=== PATIENT | female | born 1965 | race Caucasian/White ===

== ENCOUNTER → 2018-01-24 07:04 | Outpatient (CLI) | payer OTHER, SELFPAY ==
[2018-01-24 09:07] LABS: ALB/GLOB Ratio 1.2 RATIO (0.9-2.4); AST(SGOT) 15 U/L (15-37); Alanine Aminotransfer ALT/SGPT 25 U/L (13-56); Alkaline Phosphatase 52 U/L (45-117); Anion Gap 8 (5-15); BUN 10 mg/dL (7-18); BUN/Creat Ratio 14.3 RATIO (10-20); Calcium,Total 9.1 mg/dL (8.5-10.1); Chloride 105 mmol/L (98-107); Cholesterol 190 mg/dL (200); EST Glomerular Filtration Rate 93 mL/min (>60); Est Glom Filt Rate - Afr Amer 112 mL/min (>60); Globulin 3.2 g/dL (2.2-4.2); Glucose 109 mg/dL (74-106); High Density Lipoprotein 37 mg/dL; Potassium 4.1 mmol/L (3.5-5.1); Protein, Total 7.2 g/dL (6.4-8.2); Sodium Level 141 mmol/L (136-145); Triglycerides 189 mg/dL; Very Low Density Lipoprotein 38 mg/dL (5-40)
== END ==
PROVIDERS: Family Provider Family Medicine; PCP Family Medicine; Visit Provider Family Medicine
DX: I10 Essential (primary) hypertension (principal); E78.2 Mixed hyperlipidemia
CPT/HCPCS: 36415; 80053; 80061

== ENCOUNTER → 2025-01-30 | Outpatient (CLI) | payer BC, SELFPAY ==
--- NOTE | 2025-01-30 08:54 | RAD_ITS ---
PROCEDURE: ABDOMEN SINGLE VIEW 01/30/2025 REASON FOR EXAM: LEFT URETERAL STONE TECHNIQUE: Procedure Code: RADABD Modality: DX Procedure: ABDOMEN SINGLE VIEW COMPARISON: None. FINDINGS: There is a nonobstructive bowel gas pattern. There are soft tissue calcifications projected over the left sacral ala and in the left hemipelvis, which could be ureteral stones. There is mild multilevel degenerative disc disease of the lumbar spine. RAD/Abdomen Single View IMPRESSION: Possible left ureteral stones as described. Reading Location: [id number]
[2025-01-30 10:47] LABS: Hematocrit 36.2 % (37-47); Hemoglobin 11.8 g/dL (12.0-15.0); Immature Granulocytes Count 0.010 X10^3/uL (0.0-0.0); Mean Corp Hgb Conc 32.6 g/dL (32-36); Mean Corpuscular Volume 92.1 fL (81-99); Mean Platelet Vol. 10.2 fl (6.2-12.0); NRBC Flagged by Analyzer 0 % (0-5); Platelet Count 327 K/mm3 (150-450); RBC Distribution Width CV 15.2 % (11.6-14.6); RBC Distribution Width SD 51.2 fl (35.1-43.9); Red Blood Count 3.93 M/mm3 (4.2-5.4); White Blood Count 6.0 K/mm3 (4.4-11.0)
[2025-01-30 11:11] LABS: Anion Gap 11 (5-15); BUN 8 mg/dL (4-19); BUN/Creat Ratio 9.4 RATIO (10-20); Calcium,Total 9.5 mg/dL (7.6-11.0); Carbon Dioxide 23.9 mmol/L (21.0-32.0); Chloride 107 mmol/L (98-108); Glucose 88 mg/dL (70-99); Potassium 3.9 mmol/L (3.3-5.1)
== END | disposition home or self-care (01) ==
LOC: MTLAB 08:54
PROVIDERS: PCP Family Medicine; Referring Provider Urology; Visit Provider Urology
DX: N20.1 Calculus of ureter (principal); N20.0 Calculus of kidney
CPT/HCPCS: 36415; 74018; 80048; 85025

== ENCOUNTER → 2025-02-01 | Outpatient (CLI) | payer BC, SELFPAY ==
--- NOTE | 2025-02-01 18:44 | CT_ITS ---
PROCEDURE: ABDOMEN/PELVIS WITHOUT CONT 02/01/2025 REASON FOR EXAM: 1CM URETERAL STONE ON CT IN DECEMBER NOT SEEN ON [facility] TECHNIQUE: Procedure Code: CTABDPEL Modality: CT Procedure: ABDOMEN/PELVIS WITHOUT CONT Noncontrast technique limits evaluation of the abdominal and pelvic viscera. Coronal and Sagittal reconstruction series were provided. One or more dose reduction techniques were used (e.g., Automated exposure control, adjustment of the mA and/or kV according to patient size, use of iterative reconstruction technique). RADIATION DOSE SUMMARY: DLP: 308.66 mGycm COMPARISON: None available. FINDINGS: Lung bases: The lung bases are clear. No pleural effusions. Liver: Hepatomegaly measuring up to 19 cm. Normal morphology. Gallbladder: Contracted gallbladder. Punctate cholelithiasis at the fundus. No biliary ductal dilatation. Spleen: Unremarkable. Pancreas: Unremarkable. Adrenals: 1.2 x 1.4 cm right adrenal nodule. The left adrenal gland is unremarkable. Kidneys: Normal in size. Ill-defined focal cortical hypodensity in the upper right renal pole (series 2, image 49). Punctate nonobstructive right renal calculus. No ureterolithiasis. No hydronephrosis bilaterally. There is no perinephric edema. Bladder: Unremarkable. Bowel: The small and large bowel are normal in caliber. No evidence of small bowel obstruction. Appendix: Unremarkable. Lymph nodes: No lymphadenopathy. Vasculature: No abdominal aortic aneurysm. Atherosclerotic calcification of the abdominal aorta and common iliac arteries. Peritoneum / Retroperitoneum: No ascites. Small fat containing umbilical hernia. Reproductive Organs: Hysterectomy. Bones: No aggressive osseous lesions. CT/Abdomen/Pelvis without Cont IMPRESSION: 1. Ill-defined focal right renal cortical hypodensity is nonspecific but may re flect underlying infection in the appropriate clinical setting. Lack of contrast limits evaluation. 2. Punctate nonobstructive right renal calculus. No hydronephrosis bilaterally . 3. Punctate cholelithiasis. 4. Additional findings as discussed above. Reading Location: [id number]
--- OUTSIDE RECORDS SUMMARY | 2025-02-01 18:44 | XMS RPT_ITS | CCD ---
Author Organization [facility] Care Team Providers Care Blue Print Control Clerk Name Role Phone NINI ROJAS DO Primary Care Physician [phone] CRYSTAL DO, NINI Attending Unavailable CRYSTAL DO, NINI Primary Care Unavailable CRYSTAL DO, NINI Attending Unavailable CRYSTAL DO, NINI Primary Care Unavailable CRYSTAL DO, NINI Attending Unavailable CRYSTAL DO, NINI Primary Care Unavailable CRYSTAL DO, NINI Attending Unavailable CRYSTAL DO, NINI Primary Care Unavailable CRYSTAL DO, NINI Attending Unavailable CRYSTAL DO, NINI Primary Care Unavailable CRYSTAL DO, NINI Primary Care Physician [phone] CRYSTAL DO, NINI Primary Care Unavailable SHAYE DO, DR MENDEZ Attending Unavailable CRYSTAL DO, NINI Attending Unavailable CRYSTAL DO, NINI Primary Care Unavailable CRYSTAL DO, NINI Primary Care Unavailable RIDER DO, DR MALA Rodarte Attending Unavailable CRYSTAL DO, NINI Attending Unavailable CRYSTAL DO, NINI Primary Care Unavailable CRYSTAL DO, NINI Attending Unavailable CRYSTAL DO, NINI Primary Care Unavailable CRYSTAL DO, NINI Primary Care Unavailable CRYSTAL DO, NINI Attending Unavailable Zuri Noel Referring Unavailable Crystal, Nini Primary Care Unavailable Zuri Noel Attending Unavailable Zuri Noel Attending Unavailable Crystal, Nini Primary Care Unavailable Crystal, Nini Referring Unavailable Allergies Allergy Classification Reported Allergen(s) Allergy Type Date of Onset Reaction(s) Facility (20 sources) Acetaminophen / HYDROcodone; Translations: [acetaminophen-hy drocodone] Drug Allergy Vomiting [facility] (20 sources) Antihistamines; Translations: [antihistamines] Drug allergy Irregular heart beat [facility] (20 sources) Codeine; Translations: [codeine] Drug Allergy Eruption of skin (disorder), Abnormal breathing (finding) [facility] (20 sources) Penicillins; Translations: [penicillins] Drug allergy 5 Eruption of skin (disorder) [facility] (20 sources) Promethazine; Translations: [promethazine] Drug Allergy Vomiting (disorder) [facility] (2 sources) Acetaminophen / oxyCODONE; Translations: [acetaminophen-ox ycodone] Drug Allergy [facility] (1 source) Codeine Drug Allergy 5 [facility] (1 source) Promethazine Drug Allergy 5 [facility] (1 source) venom-honey bee Drug allergy (disorder) 5 [facility] Medications Current Medications Medication Drug Class(es) Dates Sig (Normalized) Sig (Original) acetaminophen 325 mg / HYDROcodone bitartrate 5 mg oral tablet (2 sources) Opioid Agonist Start: 01-08-2025 End: 01-13-2025 take 1 tablet by mouth every six hours as needed for pain acetaminophen-hyd rocodone 325 mg-5 mg oral tablet Dose = 1 tab(s), Oral, q6h, PRN for pain, X 5 day(s), # 20 tab(s), 0 Refill(s), Pharmacy: [facility]/pharmacy #[id number], Nephrolithiasis, 165.8, cm, 01/08/25 9:21:00 EDT, Height, 64.8, kg, 01/08/25 9:21:00 EDT, Dosing Weight Start Date: 01/08/25 Stop Date: 01/13/25 Status: Ordered Medication Dispense Status: Completed Quantity: 20.0 Unit: tab(s) Total Allowed Fills: 1 Fills Dispensed: 0 Indications: Calculus of kidney; Start: 12-27-2024 End: 12-30-2024 take 1 tablet by mouth three times daily Tyler 325- 5 mg oral tablet Dose = 1 tab(s), Oral, TID, X 3 day(s), # 9 tab(s), 0 Refill(s), Kidney stone, 61.4 Start Date: 12/27/24 Stop Date: 12/30/24 Status: Ordered Medication Dispense Status: Completed Quantity: 9.0 Unit: tab(s) Total Allowed Fills: 1 Fills Dispensed: 0 Indications: Calculus of kidney; [id number] 200 actuat albuterol 0.09 mg/actuat metered dose inhaler (1 source) beta2-Adrenergic Agonist Start: 02-17-2022 take 2 puff(s) by inhalation every six hours as needed for wheezing ProAir HFA MDI (90 mcg/inh) inhalation aerosol 2 puff(s), Inhalation, q6h, PRN as needed for wheezing, Okay to change to formulary preferred if needed, # 8.5 gram(s), 1 Refill(s), [id number], Upper respiratory infection, 165.5, cm, 02/17/22 11:31:00 EDT, Height Start Date: 02/17/22 Status: Ordered amLODIPine 10 mg oral tablet (20 sources) Dihydropyridine Calcium Channel Beto Start: 09-06-2024 amLODIPine 10 mg oral tablet Dose : 10 mg = 1 tab(s), Oral, qDay, # 90 tab(s), 3 Refill(s), Pharmacy: [facility]/pharmacy #[id number], Hypertension, 166, cm, 09/06/24 13:01:00 EDT, Height, kg, 09/06/24 13:01:00 EDT, Dosing Weight Start Date: 09/06/24 Status: Ordered Medication Dispense Status: Completed Quantity: 90.0 Unit: tab(s) Total Allowed Fills: 4 Fills Dispensed: 0 Indications: Essential (primary) hypertension; Start: 03-20-2024 amLODIPine 10 mg oral tablet Dose : 10 mg = 1 tab(s), Oral, qDay, # 90 tab(s), 1 Refill(s), Pharmacy: [facility]/pharmacy #[id number], Hypertension, 165, cm, 03/20/24 12:53:00 EST, Height, kg, 03/20/24 12:53:00 EST, Dosing Weight Start Date: 03/20/24 Status: Ordered Start: 08-23-2023 amLODIPine 10 mg oral tablet Dose : 10 mg = 1 tab(s), Oral, qDay, Discontinue hydrochlorothiazide prescription please, # 90 tab(s), 1 Refill(s), [id number], Hypertension, 166.5, cm, 08/23/23 11:29:00 EDT, Height, kg, 08/23/23 11:29:00 EDT, Dosing Weight Start Date: 08/23/23 Status: Ordered Start: 03-24-2023 amLODIPine 10 mg oral tablet Dose : 10 mg = 1 tab(s), Oral, qDay, # 90 tab(s), 1 Refill(s), [id number], Hypertension, 166, cm, 03/24/23 14:46:00 EST, Height, kg, 03/24/23 14:46:00 EST, Dosing Weight Start Date: 03/24/23 Status: Ordered Start: 08-12-2022 amLODIPine 10 mg oral tablet Dose : 10 mg = 1 tab(s), Oral, qDay, # 90 tab(s), 1 Refill(s), [id number], Hypertension, 165, cm, 08/12/22 13:50:00 EDT, Height, kg, 08/12/22 13:50:00 EDT, Dosing Weight Start Date: 08/12/22 Status: Ordered Start: 02-17-2022 amLODIPine 10 mg oral tablet Dose : 10 mg = 1 tab(s), Oral, qDay, # 90 tab(s), 1 Refill(s), Pharmacy: [facility]/pharmacy #[id number], Hypertension, 165.5, cm, 02/17/22 11:31:00 EDT, Height, kg, 02/17/22 11:31:00 EDT, Dosing Weight Start Date: 02/17/22 Status: Ordered Start: 05-19-2021 amLODIPine 10 mg oral tablet Dose : 10 mg = 1 tab(s), Oral, qDay, # 90 tab(s), 1 Refill(s), Pharmacy: [facility]/pharmacy #[id number], Hypertension, 166.2, cm, 05/19/21 11:14:00 EST, Height, kg, 05/19/21 11:14:00 EST, Dosing Weight Start Date: 05/19/21 Status: Ordered Start: 11-19-2020 amLODIPine 10 mg oral tablet Dose : 10 mg = 1 tab(s), Oral, qDay, Increased dose, # 90 tab(s), 1 Refill(s), Pharmacy: [facility]/pharmacy #[id number], Hypertension, 169, cm, 11/19/20 13:11:00 EDT, Height, kg, 11/19/20 13:11:00 EDT, Dosing Weight Start Date: 11/19/20 Status: Ordered aspirin 81 mg delayed release oral tablet (20 sources) Platelet Aggregation Inhibitor, Nonsteroidal Anti-inflammatory Drug Start: 05-24-2019 aspirin 81 mg ora l delayed release tablet Dose : 81 mg = 1 tab(s), Oral, Daily, 0 Refill(s) Start Date: 05/24/19 Status: Ordered Medication Dispense Status: Completed Total Allowed Fills: 1 Fills Dispensed: 0 Start: 05-24-2019 aspirin 81 mg oral delayed release tablet Dose : 81 mg = 1 tab(s), Oral, Daily, 0 Refill(s) Start Date: 05/24/19 Status: Ordered azithromycin 250 mg oral tablet (1 source) Macrolide Antimicrobial Start: 07-08-2022 End: 07-13-2022 azithromycin 250 mg oral tablet Dose : 250 mg = 1 tab(s), Oral, Daily, Take with a probiotic, X 5 day(s), # 6 tab(s), 0 Refill(s), 07/13/22 5:32:00 EST, 63.6 Start Date: 07/08/22 Stop Date: 07/13/22 Status: Ordered benzonatate 100 mg oral capsule (1 source) Non-narcotic Antitussive Start: 07-08-2022 End: 07-15-2022 Tessalon Perles 100 mg oral capsule Dose : 100 mg = 1 cap(s), Oral, TID, X 7 day(s), # 21 cap(s), 0 Refill(s), 07/15/22 5:33:00 EST Start Date: 07/08/22 Stop Date: 07/15/22 Status: Ordered citalopram 40 mg oral tablet (18 sources) Serotonin Reuptake Inhibitor Start: 09-06-2024 citalopram 40 mg ora l tablet Dose : 40 mg = 1 tab(s), Oral, qDay, # 90 tab(s), 3 Refill(s), [id number], Recurrent major depression Situational anxiety, 166, cm, 09/06/24 13:01:00 EDT, Height, kg, 09/06/24 13:01:00 EDT, Dosing Weight Start Date: 09/06/24 Status: Ordered Medication Dispense Status: Completed Quantity: 90.0 Unit: tab(s) Total Allowed Fills: 4 Fills Dispensed: 0 Indications: Major depressive disorder, recurrent, unspecified; Other specified anxiety disorders; Start: 11-30-2023 citalopram 40 mg oral tablet Dose : 40 mg = 1 tab(s), Oral, qDay, # 90 tab(s), 3 Refill(s), [id number], Recurrent major depression Situational anxiety, 165, cm, 11/30/23 12:44:00 EDT, Height, kg, 11/30/23 12:44:00 EDT, Dosing Weight Start Date: 11/30/23 Status: Ordered Start: 05-24-2023 citalopram 40 mg oral tablet Dose : 40 mg = 1 tab(s), Oral, qDay, # 90 tab(s), 1 Refill(s), [id number], Recurrent major depression Situational anxiety, 166, cm, 05/24/23 11:42:00 EST, Height, kg, 05/24/23 11:42:00 EST, Dosing Weight Start Date: 05/24/23 Status: Ordered Start: 03-24-2023 citalopram 40 mg oral tablet Dose : 40 mg = 1 tab(s), Oral, qDay, Increased dose, # 90 tab(s), 0 Refill(s), Pharmacy: [facility]/pharmacy #[id number], Recurrent major depression Situational anxiety, 166, cm, 03/24/23 14:46:00 EST, Height, kg, 03/24/23 14:46:00 EST, Dosing Weight Start Date: 03/24/23 Status: Ordered Start: 10-28-2022 citalopram 20 mg oral tablet Dose : 20 mg = 1 tab(s), Oral, qDay, # 90 tab(s), 1 Refill(s), [id number], Situational anxiety, 167, cm, 10/28/22 8:56:00 EDT, Height, kg, 10/28/22 8:56:00 EDT, Dosing Weight Start Date: 10/28/22 Status: Ordered Start: 08-12-2022 citalopram 20 mg oral tablet Dose : 20 mg = 1 tab(s), Oral, qDay, # 90 tab(s), 0 Refill(s), [id number], Situational anxiety, 165, cm, 08/12/22 13:50:00 EDT, Height Start Date: 08/12/22 Status: Ordered Start: 05-07-2022 citalopram 20 mg oral tablet Dose : 20 mg = 1 tab(s), Oral, qDay, Increased dose, # 90 tab(s), 1 Refill(s), [id number], Situational anxiety, 165.5, cm, 05/07/22 8:48:00 EST, Height Start Date: 05/07/22 Status: Ordered Start: 08-21-2021 citalopram 20 mg oral tablet Dose : 20 mg = 1 tab(s), Oral, qDay, Increased dose, # 90 tab(s), 0 Refill(s), [id number], 165, cm, 08/21/21 10:46:00 EDT, Height Start Date: 08/21/21 Status: Ordered doxycycline hyclate 100 mg oral capsule (1 source) Tetracycline-class Drug Start: 07-29-2022 End: 08-08-2022 doxycycline hyclate 100 mg oral capsule Dose : 100 mg = 1 cap(s), Oral, BID, X 10 day(s), # 20 cap(s), 0 Refill(s), 08/08/22 14:55:00 EDT, [id number], Pneumonia, 166, cm, 07/13/22 8:24:00 EST, Height, 63.9 Start Date: 07/29/22 Stop Date: 08/08/22 Status: Ordered fenofibrate 160 mg oral tablet (14 sources) Peroxisome Proliferator Receptor alpha Agonist Start: 08-23-2023 fenofibrate 160 m g oral tablet Dose : 160 mg = 1 tab(s), Oral, qDay, # 90 tab(s), 1 Refill(s), [id number], Hyperlipidemia, 166.5, cm, 08/23/23 11:29:00 EDT, Height, kg, 08/23/23 11:29:00 EDT, Dosing Weight Start Date: 08/23/23 Status: Ordered Start: 03-24-2023 fenofibrate 16 0 mg oral tablet Dose : 160 mg = 1 tab(s), Oral, qDay, # 90 tab(s), 1 Refill(s), [id number], Hyperlipidemia, 166, cm, 03/24/23 14:46:00 EST, Height, kg, 03/24/23 14:46:00 EST, Dosing Weight Start Date: 03/24/23 Status: Ordered Start: 08-12-2022 fenofibrate 16 0 mg oral tablet Dose : 160 mg = 1 tab(s), Oral, qDay, # 90 tab(s), 1 Refill(s), [id number], Hyperlipidemia, 165, cm, 08/12/22 13:50:00 EDT, Height, kg, 08/12/22 13:50:00 EDT, Dosing Weight Start Date: 08/12/22 Status: Ordered Start: 02-17-2022 fenofibrate 16 0 mg oral tablet Dose : 160 mg = 1 tab(s), Oral, qDay, # 90 tab(s), 1 Refill(s), Pharmacy: [facility]/pharmacy #[id number], Hyperlipidemia, 165.5, cm, 02/17/22 11:31:00 EDT, Height, kg, 02/17/22 11:31:00 EDT, Dosing Weight Start Date: 02/17/22 Status: Ordered Start: 05-19-2021 fenofibrate 16 0 mg oral tablet Dose : 160 mg = 1 tab(s), Oral, qDay, # 90 tab(s), 1 Refill(s), Pharmacy: [facility]/pharmacy #[id number], Hyperlipidemia, 166.2, cm, 05/19/21 11:14:00 EST, Height, kg, 05/19/21 11:14:00 EST, Dosing Weight Start Date: 05/19/21 Status: Ordered Start: 11-19-2020 fenofibrate 16 0 mg oral tablet Dose : 160 mg = 1 tab(s), Oral, qDay, # 90 tab(s), 1 Refill(s), Pharmacy: [facility]/pharmacy #[id number], Hyperlipidemia, 169, cm, 11/19/20 13:11:00 EDT, Height, kg, 11/19/20 13:11:00 EDT, Dosing Weight Start Date: 11/19/20 Status: Ordered hydroCHLOROthiazide 25 mg oral tablet (12 sources) Thiazide Diuretic Start: 03-24-2023 hydroCHLOROthiazide 25 mg oral tablet Dose : 25 mg = 1 tab(s), Oral, qDay, # 90 tab(s), 1 Refill(s), [id number], Hypertension, 166, cm, 03/24/23 14:46:00 EST, Height, kg, 03/24/23 14:46:00 EST, Dosing Weight Start Date: 03/24/23 Status: Ordered Start: 08-12-2022 hydroCHLOROthi azide 25 mg oral tablet Dose : 25 mg = 1 tab(s), Oral, qDay, # 90 tab(s), 1 Refill(s), Pharmacy: [facility]/pharmacy #[id number], Hypertension, 165, cm, 08/12/22 13:50:00 EDT, Height, kg, 08/12/22 13:50:00 EDT, Dosing Weight Start Date: 08/12/22 Status: Ordered Start: 02-17-2022 hydroCHLOROthi azide 25 mg oral tablet Dose : 25 mg = 1 tab(s), Oral, qDay, # 90 tab(s), 1 Refill(s), Pharmacy: [facility]/pharmacy #[id number], Hypertension, 165.5, cm, 02/17/22 11:31:00 EDT, Height, kg, 02/17/22 11:31:00 EDT, Dosing Weight Start Date: 02/17/22 Status: Ordered Start: 05-19-2021 hydroCHLOROthi azide 25 mg oral tablet Dose : 25 mg = 1 tab(s), Oral, qDay, # 90 tab(s), 1 Refill(s), [id number], Hypertension, 166.2, cm, 05/19/21 11:14:00 EST, Height, kg, 05/19/21 11:14:00 EST, Dosing Weight Start Date: 05/19/21 Status: Ordered Start: 11-19-2020 hydroCHLOROthi azide 25 mg oral tablet Dose : 25 mg = 1 tab(s), Oral, qDay, # 90 tab(s), 1 Refill(s), [id number], Hypertension, 169, cm, 11/19/20 13:11:00 EDT, Height, kg, 11/19/20 13:11:00 EDT, Dosing Weight Start Date: 11/19/20 Status: Ordered ondansetron 4 mg oral tablet (4 sources) Serotonin-3 Receptor Antagonist Start: 01-08-2025 Zofran 4 mg oral tab let Dose : 4 mg = 1 tab(s), Oral, q6h, PRN Nausea/Vomiting, # 20 tab(s), 0 Refill(s), [id number], 165.8, cm, 01/08/25 9:21:00 EDT, Height, kg, 01/08/25 9:21:00 EDT, Dosing Weight Start Date: 01/08/25 Status: Ordered Medication Dispense Status: Completed Quantity: 20.0 Unit: tab(s) Total Allowed Fills: 1 Fills Dispensed: 0 Start: 01-08-2025 ondansetron 4 mg oral tablet, disintegrating Dose : 4 mg = 1 tab(s), Oral, q8h, PRN as needed for nausea/vomiting, 0 Refill(s) Start Date: 01/08/25 Status: Ordered Medication Dispense Status: Completed Total Allowed Fills: 1 Fills Dispensed: 0 Start: 12-27-2024 End: 12-30-2024 ondansetron 4 mg oral tablet , disintegrating Dose : 4 mg = 1 tab(s), Oral, q8h, X 3 day(s), # 9 tab(s), 0 Refill(s), 12/30/24 12:37:00 AM EDT Start Date: 12/27/24 Stop Date: 12/30/24 Status: Ordered Medication Dispense Status: Completed Quantity: 9.0 Unit: tab(s) Total Allowed Fills: 1 Fills Dispensed: 0 Start: 07-08-2022 End: 07-11-2022 ondansetron 4 mg oral tablet , disintegrating Dose : 4 mg = 1 tab(s), Oral, q8h, X 3 day(s), # 9 tab(s), 0 Refill(s), 07/11/22 5:33:00 EST Start Date: 07/08/22 Stop Date: 07/11/22 Status: Ordered rosuvastatin calcium 5 mg oral tablet (7 sources) HMG-CoA Reductase Inhibitor Start: 09-06-2024 rosuvastatin 5 mg or al tablet Dose : 5 mg = 1 tab(s), Oral, qDay, decreased dose, # 90 tab(s), 3 Refill(s), Pharmacy: [facility]/pharmacy #[id number], Hyperlipidemia, 166, cm, 09/06/24 13:01:00 EDT, Height, kg, 09/06/24 13:01:00 EDT, Dosing Weight Start Date: 09/06/24 Status: Ordered Medication Dispense Status: Completed Quantity: 90.0 Unit: tab(s) Total Allowed Fills: 4 Fills Dispensed: 0 Indications: Hyperlipidemia, unspecified; Start: 03-20-2024 rosuvastatin 1 0 mg oral tablet Dose : 10 mg = 1 tab(s), Oral, qDay, # 90 tab(s), 1 Refill(s), Pharmacy: [facility]/pharmacy #[id number], Hyperlipidemia, 165, cm, 03/20/24 12:53:00 EST, Height, kg, 03/20/24 12:53:00 EST, Dosing Weight Start Date: 03/20/24 Status: Ordered Start: 11-30-2023 rosuvastatin 1 0 mg oral tablet Dose : 10 mg = 1 tab(s), Oral, qDay, Discontinue fenofibrate prescription please, # 90 tab(s), 1 Refill(s), Pharmacy: [facility]/pharmacy #[id number], Hyperlipidemia, 165, cm, 11/30/23 12:44:00 EDT, Height, kg, 11/30/23 12:44:00 EDT, Dosing Weight Start Date: 11/30/23 Status: Ordered sulfamethoxazole 800 mg / trimethoprim 160 mg oral tablet (1 source) Dihydrofolate Reductase Inhibitor Antibacterial, Sulfonamide Antimicrobial Start: 01-08-2025 End: 01-18-2025 take 1 tablet by mouth twice daily Bactrim DS 800 mg-160 mg oral tablet Dose = 1 tab(s), Oral, BID, X 10 day(s), # 20 tab(s), 0 Refill(s), [id number], 165.8, cm, 01/08/25 9:21:00 EDT, Height, 64.8, kg, 01/08/25 9:21:00 EDT, Dosing Weight Start Date: 01/08/25 Stop Date: 01/18/25 Status: Ordered Medication Dispense Status: Completed Quantity: 20.0 Unit: tab(s) Total Allowed Fills: 1 Fills Dispensed: 0 tamsulosin hydrochloride 0.4 mg oral capsule (2 sources) alpha-Adrenergic Beto Start: 01-08-2025 End: 01-18-2025 Flomax 0.4 mg oral capsule Dose : 0.4 mg = 1 cap(s), Oral, qDayPC, # 10 cap(s), 0 Refill(s), [id number], 165.8, cm, 01/08/25 9:21:00 EDT, Height, kg, 01/08/25 9:21:00 EDT, Dosing Weight Start Date: 01/08/25 Stop Date: 01/18/25 Status: Ordered Medication Dispense Status: Completed Quantity: 10.0 Unit: cap(s) Total Allowed Fills: 1 Fills Dispensed: 0 Start: 12-27-2024 End: 12-30-2024 Flomax 0.4 mg oral capsule D ose : 0.4 mg = 1 cap(s), Oral, qDayPC, # 3 cap(s), 0 Refill(s) Start Date: 12/27/24 Stop Date: 12/30/24 Status: Ordered Medication Dispense Status: Completed Quantity: 3.0 Unit: cap(s) Total Allowed Fills: 1 Fills Dispensed: 0 Vitamin D3 1250 mcg (50,000 intl units) oral capsule (4 sources) Start: 06-22-2023 Vitamin D3 125 0 mcg (50,000 intl units) oral capsule Dose : 1,250 mcg = 1 cap(s), Oral, qWeek, # 13 cap(s), 3 Refill(s), [id number], Vitamin D deficiency, 167, cm, 10/28/22 8:56:00 EDT, Height Start Date: 10/28/22 Status: Ordered Start: 08-22-2021 Vitamin D3 125 0 mcg (50,000 intl units) oral capsule Dose : 1,250 mcg = 1 cap(s), Oral, qWeek, # 13 cap(s), 3 Refill(s), [id number], Vitamin D deficiency, 165, cm, 08/21/21 10:46:00 EDT, Height Start Date: 08/22/21 Status: Ordered Completed/Discontinued Medications Medication Drug Class(es) Dates Sig (Normalized) Sig (Original) prochlorperazine 25 mg rectal suppository (1 source) Phenothiazine Start: 07-08-2022 End: 07-11-2022 prochlorperazine 25 mg rectal suppository Dose : 25 mg = 1 supp, Rectal, BID, PRN as needed for nausea/vomiting, # 9 supp, 0 Refill(s) Start Date: 07/08/22 Stop Date: 07/11/22 Status: Ordered Problems Active Problems Problem Classification Problem Date Documented Da te Episodic/Chronic Anxiety disorders (20 sources) Anxiety 05-19-2021 Chronic Calculus of urinary tract (6 sources) Kidney stone; Translations: [Calculus of kidney] Onset: 12-26-2024 Episodic Cardiac dysrhythmias (7 sources) Palpitations 11-30-2023 Episodic Disorders of lipid metabolism (20 sources) Hyperlipidemia; Translations: [Hyperlipidemia, unspecified] 11-17-2018 Chronic Essential hypertension (20 sources) Hypertensive disorder; Translations: [Essential hypertension] Onset: 08-23-2023 11-21-2019 Chronic Genitourinary symptoms and ill-defined conditions (2 sources) Dysuria; Translations: [Dysuria] Onset: 01-08-2025 Episodic Malaise and fatigue (20 sources) Fatigue 08-21-2021 Episodic Mood disorders (10 sources) Recurrent major depression 03-24-2023 Chronic Nutritional deficiencies (19 sources) Vitamin D deficiency; Translations: [Vitamin D deficiency, unspecified] 10-02-2021 Chronic Nutritional deficiencies (10 sources) Cobalamin deficiency 03-24-2023 Episodic Other lower respiratory disease (17 sources) Wheezing 07-13-2022 Episodic Other non-traumatic joint disorders (1 source) Joint pain in right hand; Translations: [Pain in joints of right hand] Episodic Other non-traumatic joint disorders (9 sources) Bilateral pain of joint of hands 08-23-2023 Episodic Other nutritional; endocrine; and metabolic disorders (13 sources) Overweight in adulthood with body mass index of 25 or more but less than 30 10-28-2022 Episodic Other screening for suspected conditions (not mental disorders or infectious disease) (20 sources) Viral screening status; Translations: [Thyroid function tests abnormal] 08-21-2021 Episodic Other skin disorders (13 sources) Lesion of skin of face 10-28-2022 Episodic Other skin disorders (13 sources) Loss of hair 10-28-2022 Episodic Other skin disorders (1 source) Non-scarring alopecia; Translations: [Nonscarring hair loss, unspecified] Episodic Other skin disorders (7 sources) Bilateral ingrowing nail of toe of feet 11-30-2023 Episodic Other upper respiratory infections (20 sources) Acute sinusitis; Translations: [Upper respiratory infection] 10-02-2021 Episodic Residual codes; unclassified (20 sources) Requires vaccination 05-24-2019 Episodic Residual codes; unclassified (20 sources) Requires varicella vaccination 08-21-2021 Episodic Residual codes; unclassified (18 sources) Needs influenza immunization 02-17-2022 Episodic Residual codes; unclassified (18 sources) Requires diphtheria, tetanus and pertussis vaccination 11-25-2021 Episodic Residual codes; unclassified (9 sources) Screening due 05-24-2023 Episodic Screening and history of mental health and substance abuse codes (15 sources) Ex-tobacco user 08-12-2022 Episodic Spondylosis; intervertebral disc disorders; other back problems (10 sources) Sciatica 03-24-2023 Episodic Unclassified (20 sources) Patient encounter status 08-21-2021 Unclassified (18 sources) Body mass index 20-24 - normal 02-17-2022 Unclassified (18 sources) Cancer cervix screening status 11-25-2021 Unclassified (9 sources) Influenza vaccination status 05-24-2023 Viral infection (17 sources) 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 Nini Rojas DO Status: REG CLI Study: Abdomen Single View Date of Exam: 01/30/25 Exam# [id number] Ordering Dr: Zuri Noel MD PROCEDURE: ABDOMEN SINGLE VIEW 01/30/2025 REASON FOR EXAM: LEFT URETERAL STONE TECHNIQUE: Procedure Code: RADABD Modality: DX Procedure: ABDOMEN SINGLE VIEW COMPARISON: None. FINDINGS: There is a nonobstructive bowel gas pattern. There are soft tissue calcifications projected over the left sacral ala and in the left hemipelvis, which could be ureteral stones. There is mild multilevel degenerative disc disease of the lumbar spine. RAD/Abdomen Single View IMPRESSION: Possible left ureteral stones as described. Reading Location: [id number] CC: Dr. Zuri Noel MD; Dr. Nini Rojas DO Data Sme: Signed Normal [facility] Basic Metabolic Profile (BMP )on 01-30-2025 BUN/CRE 9.4 RATIO Low 10-20 [facility] Comment on above: Performed By: #### L 500.2500, L100.0100 #### [facility] Laboratory [address] [place], [address] Calcium [Mass/Vol] 9.5 mg/dL Normal 7.6-11.0 [facility] Comment on above: Performed By: #### L 500.2500, L100.0100 #### [facility] [address] [place], [address] Chloride [Moles/Vol] 107 mmol/L Normal 98-108 [facility] Comment on above: Performed By: #### L 500.2500, L100.0100 #### [facility] [address] [place], [address] CO2 [Moles/Vol] 23.9 mmol/L Normal 21.0-32.0 [facility] Comment on above: Performed By: #### L 500.2500, L100.0100 #### [facility] [address] [place], [address] Creatinine [Mass/Vol] 0.82 mg/dL Normal 0.70-1.20 [facility] Comment on above: Performed By: #### L 500.2500, L100.0100 #### [facility] [address] [place], [address] GAP 11 Normal 5-15 [facility] Comment on above: Performed By: #### L 500.2500, L100.0100 #### [facility] [address] [place], [address] GFR/1.73 sq M.predicted among non-blacks MDRD (S/P/Bld) [Vol rate/Area] 81 mL/min/{1.73_m2} Normal >60 [facility] Comment on above: Result Comment: mL/m in/1.73m2 CKD-EPI Creatinine Equation (2020) Performed By: #### L 500.2500, L100.0100 #### [facility] [address] [place], [address] Glucose [Mass/Vol] 88 mg/dL Normal 70-99 [facility] Comment on above: Performed By: #### L 500.2500, L100.0100 #### [facility] [address] [place], [address] Potassium [Moles/Vol] 3.9 mmol/L Normal 3.3-5.1 [facility] Comment on above: Performed By: #### L 500.2500, L100.0100 #### [facility] [address] [place], [address] Sodium [Moles/Vol] 142 mmol/L Normal 133-145 [facility] Comment on above: Performed By: #### L 500.2500, L100.0100 #### [facility] [address] [place], [address] Urea nitrogen [Mass/Vol] 8 mg/dL Normal 4-19 [facility] Comment on above: Performed By: #### L 500.2500, L100.0100 #### [facility] [address] [place], [address] CBC W/Diff, Automatedon 09-2 -2024 Absolute Lymph 1.37 X10 3/uL Normal 0.83-4.51 [facility] Comment on above: Performed By: #### L 500.2500, L100.0100 #### [facility] [address] [place], [address] Absolute Neut 3.9 X10 3/uL Normal 2.0-7.7 [facility] Comment on above: Performed By: #### L 500.2500, L100.0100 #### [facility] [address] [place], [address] Basophils/100 WBC (Bld) 1.5 % High 0-1 [facility] Comment on above: Performed By: #### L 500.2500, L100.0100 #### [facility] [address] [place], [address] Eosinophils/100 WBC (Bld) 2.0 % Normal 0-5 [facility] Comment on above: Performed By: #### L 500.2500, L100.0100 #### [facility] [address] [place], [address] Erythrocyte distribution width (RBC) [Ratio] 15.2 % High 11.6-14.6 [facility] Comment on above: Performed By: #### L 500.2500, L100.0100 #### [facility] [address] [place], [address] Hematocrit (Bld) [Volume fraction] 36.2 % Low 37-47 [facility] Comment on above: Performed By: #### L 500.2500, L100.0100 #### [facility] [address] [place], [address] Hemoglobin (Bld) [Mass/Vol] 11.8 g/dL Low 12.0-15.0 [facility] Comment on above: Performed By: #### L 500.2500, L100.0100 #### [facility] [address] [place], [address] IG% 0.200 Normal 0.0-0.9 [facility] Comment on above: Result Comment: IG% - Immature Granulocytes (promyelocytes, myelocytes and metamyelocytes) > 1% indicates that a LEFT SHIFT is Present. Performed By: #### L 500.2500, L100.0100 #### [facility] [address] [place], [address] Lymphocytes/100 WBC (Bld) 22.8 % Normal 19-41 [facility] Comment on above: Performed By: #### L 500.2500, L100.0100 #### [facility] [address] [place], [address] MCH (RBC) [Entitic mass] 30.0 pg Normal 27.0-32.0 [facility] Comment on above: Performed By: #### L 500.2500, L100.0100 #### [facility] [address] [place], [address] MCHC (RBC) [Mass/Vol] 32.6 g/dL Normal 32-36 [facility] Comment on above: Performed By: #### L 500.2500, L100.0100 #### [facility] [address] [place], [address] MCV (RBC) [Entitic vol] 92.1 fL Normal 81-99 [facility] Comment on above: Performed By: #### L 500.2500, L100.0100 #### [facility] [address] [place], [address] Monocytes/100 WBC (Bld) 8.2 % Normal 0-10 [facility] Comment on above: Performed By: #### L 500.2500, L100.0100 #### [facility] [address] [place], [address] Neutrophils/100 WBC (Bld) 65.3 % Normal 47-70 [facility] Comment on above: Performed By: #### L 500.2500, L100.0100 #### [facility] [address] [place], [address] Nucleated RBC (Bld) [#/Vol] 0 10*3/uL Normal 0-5 [facility] Comment on above: Performed By: #### L 500.2500, L100.0100 #### [facility] [address] [place], [address] Platelet mean volume (Bld) [Entitic vol] 10.2 fL Normal 6.2-12.0 [facility] Comment on above: Performed By: #### L 500.2500, L100.0100 #### [facility] [address] [place], [address] Platelets (Bld) [#/Vol] 327 10*3/uL Normal 150-450 [facility] Comment on above: Performed By: #### L 500.2500, L100.0100 #### [facility] [address] [place], [address] RBC (Bld) [#/Vol] 3.93 10*6/uL Low 4.2-5.4 [facility] Comment on above: Performed By: #### L 500.2500, L100.0100 #### [facility] [address] [place], [address] RDW SD 51.2 fl High 35.1-43.9 [facility] Comment on above: Performed By: #### L 500.2500, L100.0100 #### [facility] [address] [place], [address] WBC (Bld) [#/Vol] 6.0 10*3/uL Normal 4.4-11.0 [facility] Comment on above: Performed By: #### L 500.2500, L100.0100 #### [facility] [address] [place], [address] MR/[place] 01-30-2025 MR/JEET [facility] [address], [address] [place] [address] OFFICE VISIT Date of Service: 01/30/25 MR#: [id number] Acct: [id number] Name: SHANAE ORTIZ Monet Rep #: [id number] : 1965 Provider: Dr. Zuri De La Cruz i, MD Age/Sex: 59/F [place] [facility] [place]: Signed Intake Vital Signs 01/30/25 07:58 Height 5 ft 6.5 in Weight: 153 lb 9 oz BMI 24.4 BP 127/75 H Pulse 69 Intake Visit Reasons: Kidney stones Chief Complaint: left sided kidney stone Photo Retoucher Required: No Accompanied by: self Is patient in pain?: Yes (stones ) Pain scale (1-10): 5 Allergies codeine Allergy (Verified 01/30/25 07:56) Rash Penicillins Allergy (Verified 01/30/25 07:56) Rash venom-honey bee (bee venom (honey bee)) Allergy (Verified 01/30/25 07:56) Shortness of breath promethazine HCl (From Phenergan) Adverse Reaction (Verified 01/30/25 07:56) Vomiting Medications ???Medication ???Instructions ???Recorded ???Confirmed ???Type amlodipine 10 mg tablet 10 mg PO DAILY 04/16/15 01/30/25 H istory aspirin 81 mg tablet 81 mg PO QDAY 01/30/25 01/30/25 Hi story ondansetron 4 mg disintegrating 4 mg PO Q8H PRN nausea and 5 01/30/25 Rx tablet vomiting #20 tabs oxycodone-acetamino phen 5 mg-325 1 tab PO TID PRN pain 7 days #20 0 01/30/25 01/30/25 Rx mg tablet (Percocet) tabs rosuvastatin 5 mg tablet 5 mg PO QDAY 01/30/25 01/30/25 His tory Have you fallen in the past year?: Yes (just bruised some ) Nurse's Note: [facility] bladder scan PVR 0cc. PFSH Medical History (Updated 01/30/25 @ 08:[address] Zuri Noel MD) Flank pain Hydronephrosis Ureteral calculus delivery delivered H/O: pneumonia Kidney stones High cholesterol Hypertension Chronic headaches Carpal tunnel syndrome Cataracts, bilateral Breast lump H/O transfusion of whole blood UTI (urinary tract infection) Arthritis Anemia Surgical History S/P carpal tunnel release H/O lumpectomy H/O: hysterectomy S/P tonsillectomy Family History Other Anemia Breast cancer CVA (cerebral vascular accident) Cancer Diabetes High cholesterol Hypertension Parkinsons disease Social History Smoking Status: Current every day smoker alcohol intake: never substance use type: does not use what type of physical activity do you participate in: walking frequency: other duration: other do you feel safe at home: Yes HPI HPI Urology Chief Complaint: left sided kidney stone Details: SHANAE ORTIZ, is a 59 F. She is here for evaluation and management of left ureteral and right kidney stones. It was found on 12/26 and she is having significant pain and nausea on the left side. No fever or chills. There is some burning with urination and urgency. No gross hematuria. She has had surgery for stones about 20 years ago with a stent. She has nausea and vomiting with anesthesia. No heart conditions, lung disease. She does take an ASA daily. She is voiding less than 10 times during the day, 3-4 times at night. There is urge incontinence where she cannot make it to the bathroom. There is stress incontinence with cough, laugh, sneeze, lifting, etc. She is using 1 pad in 24 hours. She has had one urinary tract infection in the last year. She is not sexually active. There is no sensation of vaginal bulging. She has had one child. She has the following issues with chronic bowel function: none. There is no pelvic pain. She has a long history of smoking. She smokes 3-5 cigarettes a day. 45yrs history of smoking. There is no history of blood clots or easy bleeding. There is a family history of father with breast cancer. Mom with bladder cancer, she was a smoker and had cancer at 79yo. ROS Const Constitutional: No chills, fatigue, fever(s), headache(s), night sweats, weakness, weight change, abnormal sleep pattern or change in appetite Eyes Eyes: No change in vision ENT ENT: No headache(s) or dry mouth Resp Respiratory: No cough, chest congestion, shortness of breath or wheezing Cardio Cardiology: Positive for other (No chest pain.); No shortness of breath, irregular heart rhythm or lightheadedness Gastro GI: Positive for abdominal pain, nausea/dyspepsia and other (No GERD.); No change in bowel habits, constipation, diarrhea or vomiting Musc Musculoskeletal: No abnormal gait Skin Skin: No yellowing of the eye, lesions, itchy eyes, rash or skin ulcer Neuro Neurology: No abnormal gait, confusion, dizziness, weakness, headache(s) or memory loss Psych Psychiatric: No abnormal sleep pattern, No change in appetite, No confusion and No m (more content not included)... Normal [facility] MEROPENEM:SUSC:PT:ISOLATE:OR DQN:MICon 01-08-2025 Meropenem TATYANA [Susc] 10,000 - 50,000 cfu/ml Escherichia coli [facility] Meropenem TATYANA [Susc]on 01-08 Escherichia coli Escherichia coli [facility] UAon 12-27-2024 Color (U) Yellow Normal [facility] Comment on above: Performed By: #### U AMIC, UA #### [place] [address] Glucose (U) [Mass/Vol] Negative Normal Negative [facility] Comment on above: Performed By: #### U AMIC, UA #### [place] [address] Ketones Ql (U) Negative Normal Negative [facility] Comment on above: Performed By: #### U AMIC, UA #### [place] [address] UA Appear Clear Normal Clear [facility] Comment on above: Performed By: #### U AMIC, UA #### [place] [address] UA Blood Moderate Abnormal Negative [facility] Comment on above: Performed By: #### U AMIC, UA #### [place] [address] UA Leuk Est Small Abnormal Negative [facility] Comment on above: Performed By: #### U AMIC, UA #### [place] [address] UA Nitrite Negative Normal Negative [facility] Comment on above: Performed By: #### U AMIC, UA #### [place] [address] UA pH 6.0 Normal 5.0 - 8.0 [facility] Comment on above: Performed By: #### U AMIC, UA #### [address] [address] UA Protein Negative Normal Negative [facility] Comment on above: Performed By: #### U AMIC, UA #### [address] [address] UA Spec Grav 1.015 Normal 1.015-1.025 [facility] Comment on above: Performed By: #### U AMIC, UA #### [address] [address] UA Specimen Type Void Normal [facility] Comment on above: Performed By: #### U AMIC, UA #### [place] [address] UA Urobilinogen 0.2 E.U./dL Normal 0.2-1.0 [facility] Comment on above: Performed By: #### U AMIC, UA #### [place] [address] Urobilinogen (U) [Mass/Vol] Negative Normal Negative [facility] Comment on above: Performed By: #### U AMIC, UA #### [address] [address] UAMICon 12-27-2024 UA RBC 3-5 Abnormal 0-2 [facility] Comment on above: Performed By: #### U AMIC, UA #### [place] [address] UA Squam Epithelial 0-2 Normal 0-20 [facility] Comment on above: Performed By: #### U AMIC, UA #### [place] [address] UA WBC 3-5 Normal 0-5 [facility] Comment on above: Performed By: #### U AMIC, UA #### [address] [address] .Auto Diffon 12-26-2024 Basophil, Absolute 0.1 10 3/mcL Normal 0.0-0.3 [facility] Comment on above: Performed By: #### C BC, BMP, GFR, MDW, ANEU, ADIFF ####[address] [place], [place] [address] Basophils/100 WBC (Bld) 0.9 % Normal 0.0-2.5 [facility] Comment on above: Performed By: #### C BC, BMP, GFR, MDW, ANEU, ADIFF ####[address] [place], [place] [address] Eosinophil, Absolute 0.1 10 3/mcL Normal 0.0-0.7 [facility] Comment on above: Performed By: #### C BC, BMP, GFR, MDW, ANEU, ADIFF ####[address] [place], [place] [address] Eosinophils/100 WBC (Bld) 1.0 % Normal 0.0-6.0 [facility] Comment on above: Performed By: #### C BC, BMP, GFR, MDW, ANEU, ADIFF ####[address] [place], [place] [address] Lymphocyte, Absolute 1.4 10 3/mcL Normal 0.9-4.3 [facility] Comment on above: Performed By: #### C BC, BMP, GFR, MDW, ANEU, ADIFF ####[address] [place], [place] [address] Lymphocytes/100 WBC (Bld) 10.2 % Low 20.0-40.0 [facility] Comment on above: Performed By: #### C BC, BMP, GFR, MDW, ANEU, ADIFF ####[address] [place], [place] [address] Monocyte, Absolute 0.6 10 3/mcL Normal 0.1-1.4 [facility] Comment on above: Performed By: #### C BC, BMP, GFR, MDW, ANEU, ADIFF ####[address] [place], [place] [address] Monocytes/100 WBC (Bld) 4.1 % Normal 2.0-13.0 [facility] Comment on above: Performed By: #### C BC, BMP, GFR, MDW, ANEU, ADIFF ####[address] [place], [place] [address] Neutrophils/100 WBC (Bld) 83.8 % High 50.0-75.0 [facility] Comment on above: Performed By: #### C BC, BMP, GFR, MDW, ANEU, ADIFF ####[address] [place], [place] [address] .GFRon 12-26-2024 Estimated Glomerular Filtration Rate 74 ml/min/1.73sqm Normal [facility] Comment on above: Result Comment: Stages of Chronic Kidney Disease (CKD) Stage Description eGFR(ml/min/1.73 sq.m.) CKD 1 Normal kidney function or >=90 normal kindney function with possible kidney damage (ex. Proteinuria) CKD 2 Kidney damage with mild loss 60-89 of kidney function CKD 3a Mild to moderate loss of kidney 45-59 function CKD 3b Moderate to severe loss of 30-44 of kindey function CKD 4 Severe loss of kidney function 15-29 CKD 5 Kidney failure <15 Note: (go live 2024) the eGFR calculation was updated to the 2020 CKD-EPI creatinine equation without a race factor to calculate the eGFR results. Performed By: #### C BC, BMP, GFR, MDW, ANEU, ADIFF ####[address] [place], [place] [address] .MDWon 12-26-2024 Monocyte Distribution Width 19.22 Normal 0.00-20.00 [facility] Comment on above: Result Comment: For ED adult patients suspected of sepsis, MDW<=20.0 does not rule out sepsis or risk of sepsis Performed By: #### C BC, BMP, GFR, MDW, ANEU, ADIFF ####[address] [place], [place] [address] .NEUABSon 12-26-2024 Neutrophil, Absolute 11.8 10 3/mcL High 2.3-8.1 [facility] Comment on above: Performed By: #### C BC, BMP, GFR, MDW, ANEU, ADIFF ####[address] [place], [place] [address] BMPon 12-26-2024 BUN/Creatinine Ratio 17 ratio Normal 7-27 [facility] Comment on above: Performed By: #### C BC, BMP, GFR, MDW, ANEU, ADIFF ####[address] [place], [place] [address] Calcium [Mass/Vol] 10.4 mg/dL High 8.4-10.2 [facility] Comment on above: Performed By: #### C BC, BMP, GFR, MDW, ANEU, ADIFF ####[address] [place], [place] [address] Chloride [Moles/Vol] 101 mmol/L Normal 98-107 [facility] Comment on above: Performed By: #### C BC, BMP, GFR, MDW, ANEU, ADIFF ####[address] [place], [place] [address] CO2 [Moles/Vol] 28 mmol/L Normal 23-31 [facility] Comment on above: Performed By: #### C BC, BMP, GFR, MDW, ANEU, ADIFF ####[address] [place] [address] Creatinine [Mass/Vol] 0.89 mg/dL Normal 0.51-0.95 [facility] Comment on above: Performed By: #### C BC, BMP, GFR, MDW, ANEU, ADIFF ####[address] [place], [place] [address] Electrolyte Balance 9.0 mEq/L Normal 4.0-15.0 [facility] Comment on above: Performed By: #### C BC, BMP, GFR, MDW, ANEU, ADIFF ####[address] [place], [place] [address] Glucose [Mass/Vol] 147 mg/dL High 80-115 [facility] Comment on above: Performed By: #### C BC, BMP, GFR, MDW, ANEU, ADIFF ####[address] [place], [place] [address] Potassium [Moles/Vol] 3.9 mmol/L Normal 3.5-5.1 [facility] Comment on above: Performed By: #### C BC, BMP, GFR, MDW, ANEU, ADIFF ####[address] [place], [place] [address] Sodium [Moles/Vol] 138 mmol/L Normal 136-145 [facility] Comment on above: Performed By: #### C BC, BMP, GFR, MDW, ANEU, ADIFF ####[address] [place], [place] [address] Urea nitrogen [Mass/Vol] 15 mg/dL Normal 7-18 [facility] Comment on above: Performed By: #### C BC, BMP, GFR, MDW, ANEU, ADIFF ####[address] [place], [place] [address] CBCon 12-26-2024 Erythrocyte distribution width (RBC) [Ratio] 15.0 % Normal 11.5-15.5 [facility] Comment on above: Performed By: #### C BC, BMP, GFR, MDW, ANEU, ADIFF ####[address] [place] [id number] Hematocrit (Bld) [Volume fraction] 42.4 % Normal 34.0-46.0 [facility] Comment on above: Performed By: #### C BC, BMP, GFR, MDW, ANEU, ADIFF ####[address] [place], [place] [address] Hgb 14.2 G/dL Normal 12.0-16.0 [facility] Comment on above: Performed By: #### C BC, BMP, GFR, MDW, ANEU, ADIFF ####[address] [place], [place] [address] MCH (RBC) [Entitic mass] 29.7 pg Normal 27.0-33.0 [facility] Comment on above: Performed By: #### C BC, BMP, GFR, MDW, ANEU, ADIFF ####[address] [place], [place] [address] MCHC 33.6 G/dL Normal 32.0-36.0 [facility] Comment on above: Performed By: #### C BC, BMP, GFR, MDW, ANEU, ADIFF ####[address] [place], [place] [address] MCV (RBC) [Entitic vol] 88.6 fL Normal 80.0-99.0 [facility] Comment on above: Performed By: #### C BC, BMP, GFR, MDW, ANEU, ADIFF ####[address] [place], [place] [address] Platelet 223 10 3/mcL Normal 150-450 [facility] Comment on above: Performed By: #### C BC, BMP, GFR, MDW, ANEU, ADIFF ####[address] [place], [place] [address] Platelet mean volume (Bld) [Entitic vol] 8.2 fL Normal 6.6-10.5 [facility] Comment on above: Performed By: #### C BC, BMP, GFR, MDW, ANEU, ADIFF ####[address] [place], [place] [address] RBC 4.78 10 6/mcL Normal 4.10-5.30 [facility] Comment on above: Performed By: #### C BC, BMP, GFR, MDW, ANEU, ADIFF ####[address] [place], [place] [address] WBC 14.1 10 3/mcL High 4.5-10.8 [facility] Comment on above: Performed By: #### C BC, BMP, GFR, MDW, ANEU, ADIFF ####[address] [place], [place] [address] CT ABDOMEN/PELVIS W/O CONTRA STon 12-26-2024 CT ABDOMEN/PELVIS W/O CONTRAST ORIGINAL EXAMINATION: CT OF THE ABDOMEN AND PELVIS WITHOUT CONTRAST 12/26/2024 10:35 pm TECHNIQUE: CT of the abdomen and pelvis was performed without the administration of intravenous contrast. Multiplanar reformatted images are provided for review. Automated exposure control, iterative reconstruction, and/or weight based adjustment of the mA/kV was utilized to reduce the radiation dose to as low as reasonably achievable. COMPARISON: None. HISTORY: ORDERING SYSTEM PROVIDED HISTORY: Reason for Exam: abdominal pain FINDINGS: Lower Chest: Visualized lower thorax demonstrates no consolidation or pleural effusion. Organs: The liver demonstrates no biliary duct dilatation or gross mass. The gallbladder demonstrates no calcified gallstones or gross wall thickening. The pancreas demonstrates no gross mass, gross inflammatory process, or ductal dilatation. Spleen is normal in size. There is stable small right adrenal hypodense nodule with density measurements 6 Hounsfield units. Left adrenal gland is normal in morphology. There is 3 mm calculus of right kidney without hydronephrosis. The left kidney demonstrates mild hydronephrosis without renal calculi. There is a 1.1 cm calculus of the proximal left ureter, at level of L4 of lumbar spine, as reference level. GI/Bowel: Stomach and duodenal sweep demonstrate no acute abnormality. Small bowel and colon are normal in caliber. There is mild sigmoid diverticulosis without diverticulitis. Appendix is normal in caliber without gross wall thickening or inflammatory change. Pelvis: Urinary bladder is within normal limits. Prior hysterectomy noted. Peritoneum/Retroper itoneum: Aorta is normal in caliber. There are a few calcified plaques of the aorta. Bones/Soft Tissues: There is a small fat-containing periumbilical hernia. Visualized osseous structures demonstrate mild degenerative changes. IMPRESSION: 1. 1.1 cm calculus of the proximal left ureter with mild left hydronephrosis. 2. 3 mm calculus of the right kidney without hydronephrosis. 3. Mild sigmoid diverticulosis without diverticulitis. 4. Small fat-containing periumbilical hernia. 5. Stable small right adrenal adenoma. Interpreted by: Raul Ortiz Preliminary Report By: Raul Ortiz Electronically signed By Raul Ortiz Dictated Date: 12/26/2024 10:52:17 PM Prelim Date: 12/26/2024 11:08:43 PM Sign Date: 12/26/2024 11:08:43 PM Ordering Provider: MALA Wilcox [facility] LABORATORYOrdered By: Tamir Infante on 12-26-2024 Appearance (U) Clear (12/26/24 11:56 PM) Normal Clear AO Auto Urine SS Bilirubin Ql (U) Negative (12/26/24 11:56 PM) Normal Negative AO Auto Urine SS Color (U) Yellow (12/26/24 11:56 PM) Normal AO Auto Urine SS Glucose Test strip (U) [Mass/Vol] Negative Normal Negative AO Auto Urine SS Hemoglobin Auto test strip (U) [Mass/Vol] Moderate *ABN* (12/26/24 11:56 PM) Invalid Interpretation Code Negative AO Auto Urine SS Ketones Ql (U) Negative Normal Negative AO Auto Ur ine SS UA Leuk Est Small *ABN* (12/26/24 11:56 PM) Invalid Interpretation Code Negative AO Auto Urine SS UA Nitrite Negative (12/26/24 11:56 PM) Normal Negative AO Auto Urine SS UA pH 6.0 (12/26/24 11:56 PM) Normal 5.0 - 8.0 AO Auto Urine SS UA Protein Negative Normal Negative AO Auto Urine SS UA RBC 3-5 /HPF Invalid Interpretation Code 0-2 AO Auto Urine SS UA Spec Grav 1.015 (12/26/24 11:56 PM) Normal 1.015-1.025 AO Auto Urine SS UA Specimen Type Void (12/26/24 11:56 PM) Normal AO Auto Urine SS UA Squam Epithelial 0-2 /HPF Normal 0-20 AO Au to Urine SS UA Urobilinogen 0.2 E.U./dL Normal 0.2-1.0 AO Auto Urine SS WBC LM.HPF (Urine sed) [#/Area] 3-5 /HPF Normal 0-5 AO Auto Urine SS LABORATORYOrdered By: SYSTEM SYSTEM on 12-26-2024 Basophils (Bld) [#/Vol] 0.1 103/mcL Normal 0.0 - 0.3 10^3/mcL AO Workflow SS Basophils/100 WBC (Bld) 0.9 % Normal 0.0 - 2.5 % AO Workflow SS Calcium [Mass/Vol] 10.4 mg/dL High 8.4 - 10. 2 mg/dL AO ADM SS Chloride [Moles/Vol] 101 mmol/L Normal 98 - 10 7 mmol/L AO ADM SS CO2 [Moles/Vol] 28 mmol/L Normal 23 - 31 mmol/L AO ADM SS Creatinine [Mass/Vol] 0.89 mg/dL Normal 0.51 - 0.95 mg/dL AO ADM SS Electrolyte Balance 9.0 mEq/L Normal 4.0 - 15 .0 mEq/L AO ADM SS Eosinophil, Absolute 0.1 103/mcL Normal 0.0 - 0 .7 10^3/mcL AO Workflow SS Eosinophils/100 WBC (Bld) 1.0 % Normal 0.0 - 6.0 % AO Workflow SS Erythrocyte distribution width (RBC) [Ratio] 15.0 % Normal 11.5 - 15.5 % AO Workflow SS Estimated Glomerular Filtration Rate 74 ml/min/1.73sqm Invalid Interpretation Code AO Chemistry S Comment on above: Interpretive Data: Stages of Chronic Kidney Disease (CKD) Stage Description eGFR(ml/min/1.73 sq.m.) CKD 1 Normal kidney function or >=90 normal kindney function with possible kidney damage (ex. Proteinuria) CKD 2 Kidney damage with mild loss 60-89 of kidney function CKD 3a Mild to moderate loss of kidney 45-59 function CKD 3b Moderate to severe loss of 30-44 of kindey function CKD 4 Severe loss of kidney function 15-29 CKD 5 Kidney failure <15 Note: (go live 2024) the eGFR calculation was updated to the 2020 CKD-EPI creatinine equation without a race factor to calculate the eGFR results. Glucose [Mass/Vol] 147 mg/dL High 80 - 115 mg/dL AO ADM SS Hematocrit (Bld) [Volume fraction] 42.4 % Normal 34.0 - 46.0 % AO Workflow SS Hemoglobin (Bld) [Mass/Vol] 14.2 G/dL Normal 12.0 - 16.0 G/dL AO Workflow SS Lymphocytes (Bld) [#/Vol] 1.4 103/mcL Normal 0.9 - 4.3 10^3/mcL AO Workflow SS Lymphocytes/100 WBC (Bld) 10.2 % Low 20.0 - 40.0 % AO Workflow SS MCH (RBC) [Entitic mass] 29.7 pg Normal 27.0 - 33.0 pg AO Workflow SS MCHC 33.6 G/dL Normal 32.0 - 36.0 G/dL AO Workflow SS MCV (RBC) [Entitic vol] 88.6 fL Normal 80.0 - 99.0 fL AO Workflow SS Monocyte distribution width Auto (Bld) [Entitic vol] 19.22 1 Normal 0.00 - 20.00 AO Workflow SS Comment on above: Result Comment: For ED adult patients suspected of sepsis, MDW<=20.0 does not rule out sepsis or risk of sepsis Monocytes (Bld) [#/Vol] 0.6 103/mcL Normal 0.1 - 1.4 10^3/mcL AO Workflow SS Monocytes/100 WBC (Bld) 4.1 % Normal 2.0 - 13.0 % AO Workflow SS Neutrophils (Bld) [#/Vol] 11.8 103/mcL High 2.3 - 8.1 10^3/mcL AO Workflow SS Neutrophils/100 WBC (Bld) 83.8 % High 50.0 - 75.0 % AO Workflow SS Platelet mean volume (Bld) [Entitic vol] 8.2 fL Normal 6.6 - 10.5 fL AO Workflow SS Platelets (Bld) [#/Vol] 223 103/mcL Normal 150 - 450 10^3/mcL AO Workflow SS Potassium [Moles/Vol] 3.9 mmol/L Normal 3.5 - 5.1 mmol/L AO ADM SS RBC (Bld) [#/Vol] 4.78 106/mcL Normal 4.10 - 5.3 0 10^6/mcL AO Workflow SS Sodium [Moles/Vol] 138 mmol/L Normal 136 - 145 mmol/L AO ADM SS Urea nitrogen [Mass/Vol] 15 mg/dL Normal 7 - 18 mg/dL AO ADM SS Urea nitrogen/Creatinine [Mass ratio] 17 ratio Normal 7 - 27 ratio AO ADM SS WBC (Bld) [#/Vol] 14.1 103/mcL High 4.5 - 10.8 10^3/mcL AO Workflow SS LABORATORYOrdered By: Chris Ramsay on 09-06-2024 Albumin DL <= 20 mg/L (U) [Mass/Vol] 14.2 mg/L Invalid Interpretation Code AO ADM SS Albumin/Creatinine DL <= 20 mg/L (U) [Mass ratio] 14 mg/G Normal 0 - 30 mg/G AO Chemistry S Creatinine (U) [Mass/Vol] 99.5 mg/dL Normal 29.0 - 226.0 mg/dL AO ADM SS MALBRon 09-06-2024 U Creatinine 99.5 mg/dL Normal 29.0-226.0 [facility] Comment on above: Performed By: #### M ALBR #### [place] [id number] U Microalb 14.2 mg/L Normal [facility] Comment on above: Performed By: #### M ALBR #### [facility] [address], [place] [address] U Ratio Alb/Cre 14 mg/G Normal 0-30 [facility] Comment on above: Performed By: #### M ALBR #### [facility] [address] [place], [place] [address] CT THORAX SCREENING W/O CONT RASTon 04-19-2024 CT THORAX SCREENING W/O CONTRAST ORIGINAL EXAMINATION: LOW DOSE SCREENING CT OF THE CHEST WITHOUT GGQMIFRA38/9/2024 4:23 pm TECHNIQUE: Low dose lung cancer screening CT of the chest was performed without the administration of intravenous contrast. Multiplanar reformatted images are provided for review. Automated exposure control, iterative reconstruction, and/or weight based adjustment of the mA/kV was utilized to reduce the radiation dose to as low as reasonably achievable. COMPARISON: CT chest 04/12/2023 HISTORY: ORDERING SYSTEM PROVIDED HISTORY: Reason for Exam: Lung Cancer Screening 33 pack year hx. Current smoker. FINDINGS: The heart is normal in size. No pericardial effusion. Nonaneurysmal thoracic aorta. The main pulmonary artery is mildly dilated, 3.2 cm; this suggests pulmonary hypertension. No lymphadenopathy is visible on this unenhanced exam. The trachea and mainstem bronchi are patent. No suspicious endotracheal or endobronchial nodule. No pulmonary consolidation. Minimal emphysematous changes. Minimal pleural and parenchymal scarring. Bibasilar dependent atelectasis. Stable 2 mm bilateral upper lobe nodules (image 28, series 2). No pneumothorax or pleural effusion. No acute osseous abnormality. No aggressive osseous lesions. Mostly mild degenerative changes. Posterior disc osteophyte complex at T6-7 results in moderate to severe midline canal stenosis. Partially imaged 1.2 cm right adrenal nodule attenuating to Less 10 Hounsfield units. The abdomen is not evaluated in detail. IMPRESSION: Stable micro nodules. For patients with appropriate lung cancer risk, annual CT screening is recommended. Benign 1.2 cm right lipid rich adenoma. Information below is for Lung nodule tracking purposes: Nodule: S3 Other Findings: None Change: No Change Recall : 1yr scr Recall Type: LDCT LungRads: 2 RECOMMENDATIONS: Lung-RADS: Category 2, Benign appearance or behavior. Management: Continue annual lung screening with LDCT in 12 months. I have personally reviewed the images of this examination and agree with the resident's findings and interpretation. Interpreted by: Bryce Kirby Preliminary Report By: Celestine Shirley Electronically signed By Bryce Kirby Dictated Date: 04/19/2024 1:08:09 PM Prelim Date: 04/19/2024 1:37:10 PM Sign Date: 04/19/2024 1:37:10 PM Ordering Provider: NINI Wilcox [facility] MA MAMMOGRAM SCREENING BILAT ERAL W/TOMOon 04-04-2024 MA MAMMOGRAM SCREENING BILATERAL W/BEN ORIGINAL FROM: [facility] [address] [place], [place] [address] PROCEDURE FOR: SHANAE ORTIZ [address] [place] [address] Home: PID#: [id number] Exam#: [id number] : 1965 Age: 58 TO: NINI ROJAS DO [address] [address] Fax: NO FAX EXAMINATION: SCREENING DIGITAL BILATERAL MAMMOGRAM WITH TOMOSYNTHESIS, 04/04/2024 2:28 pm TECHNIQUE: Screening mammography of the bilateral breasts was performed with tomosynthesis. 2D standard and 3D tomosynthesis combination imaging performed through both breasts in the MLO and CC projection. Computer aided detection was utilized in the interpretation of this exam. COMPARISON: 11/08/2022, 09/11/2021 HISTORY: Breast cancer screening. FINDINGS: BREAST DENSITY: There are scattered areas of fibroglandular density. There are benign appearing calcifications in both breasts. There are no significant masses or calcifications. IMPRESSION: No mammographic evidence of malignancy. Continued screening with annual mammograms is recommended. Sebastian Randall risk calculations, generated with the history provided, report this patient's 10 year risk and lifetime risk for developing breast cancer at 6.3% and 15.2%, respectively. Based on this assessment tool, if the patient's calculated lifetime risk is below 20%, then the patient is considered at average risk for developing breast cancer. If the patient's calculated lifetime risk is at or above 20%, then the patient is considered high risk for developing breast cancer and may be a candidate for supplemental breast MRI screening in addition to annual mammographic screening per the [employer]. BIRADS: BI-RADS: 2: Benign RECALL: 1 year screening RECALL TYPE: mammo LETTER SENT: Normal BI-RADS 1 and 2 Interpreted by: David Conroy MD Preliminary Report By: David Conroy MD Electronically signed By David Conroy MD Dictated Date: 04/04/2024 8:24:09 PM Prelim Date: 04/04/2024 8:26:04 PM Sign Date: 04/04/2024 8:26:04 PM Ordering Provider: NINI ROJAS Apple Picker: ANTONIO HI RT(R)(M)(CT) letter sent: Normal BI-RADS 1 and 2 Mammogram BI-RADS: 2 Benign Normal [facility] .GFRon 03-13-2024 GFR 70 ml/min/1.73sqm [facility] Comment on above: Result Comment: GFR Population mean for , Non- Americans Ages 20-29 = 116 mL/min/1.73 sq.m. Ages 30-39 = 107 mL/min/1.73 sq.m. Ages 40-49 = 99 mL/min/1.73 sq.m. Ages 50-59 = 93 mL/min/1.73 sq.m. Ages 60-69 = 85 mL/min/1.73 sq.m. Ages 70+ = 75 mL/min/1.73 sq.m. Chronic Kidney Disease: Less than 60 mL/min/1.73 square meters End Stage Renal Disease: Less than 15 mL/min/1.73 square meters Performed By: #### C MP, VIDH, GFR, LIPID, TSH #### [address] [address] GFR Non- 58 ml/min/1.73sqm [facility] Comment on above: Result Comment: GFR Population mean for , Non- Americans Ages 20-29 = 116 mL/min/1.73 sq.m. Ages 30-39 = 107 mL/min/1.73 sq.m. Ages 40-49 = 99 mL/min/1.73 sq.m. Ages 50-59 = 93 mL/min/1.73 sq.m. Ages 60-69 = 85 mL/min/1.73 sq.m. Ages 70+ = 75 mL/min/1.73 sq.m. Chronic Kidney Disease: Less than 60 mL/min/1.73 square meters End Stage Renal Disease: Less than 15 mL/min/1.73 square meters Performed By: #### C MP, VIDH, GFR, LIPID, TSH #### [address] [address] CMPon 03-13-2024 Albumin Level 4.2 G/dL Normal 3.4-4.8 [facility] Comment on above: Performed By: #### C MP, VIDH, GFR, LIPID, TSH #### [address] [address] Albumin/Globulin [Mass ratio] 1.6 {ratio} Normal 1.1-2.5 [facility] Comment on above: Performed By: #### C MP, VIDH, GFR, LIPID, TSH #### [address] [address] ALP [Catalytic activity/Vol] 66 U/L Normal 40-135 [facility] Comment on above: Performed By: #### C MP, VIDH, GFR, LIPID, TSH #### [address] [address] ALT [Catalytic activity/Vol] 27 U/L Normal 14-59 [facility] Comment on above: Performed By: #### C MP, VIDH, GFR, LIPID, TSH #### [address] [address] AST [Catalytic activity/Vol] 14 U/L Normal 10-40 [facility] Comment on above: Performed By: #### C MP, VIDH, GFR, LIPID, TSH #### [address] [address] Bili Total 0.3 mg/dL Normal 0.2-1.0 [facility] Comment on above: Result Comment: Use of this assay is not recommended for patients undergoing treatment with eltrombopag due to the potential for falsely elevated results. Performed By: #### C MP, VIDH, GFR, LIPID, TSH #### [place] [address] BUN/Creatinine Ratio 12 ratio Normal 7-27 [facility] Comment on above: Performed By: #### C MP, VIDH, GFR, LIPID, TSH #### [place] [address] Calcium [Mass/Vol] 10.1 mg/dL Normal 8.4-10.2 [facility] Comment on above: Performed By: #### C MP, VIDH, GFR, LIPID, TSH #### [place] [address] Chloride [Moles/Vol] 100 mmol/L Normal 98-107 [facility] Comment on above: Performed By: #### C MP, VIDH, GFR, LIPID, TSH #### [place] [address] CO2 [Moles/Vol] 28 mmol/L Normal 23-31 [facility] Comment on above: Performed By: #### C MP, VIDH, GFR, LIPID, TSH #### [place] [address] Creatinine [Mass/Vol] 0.98 mg/dL Normal 0.55-1.02 [facility] Comment on above: Result Comment: Test ing performed on Siemens Dimension EXL analyzer using a modified kinetic Ignacia technique. Performed By: #### C MP, VIDH, GFR, LIPID, TSH #### [place] [address] Electrolyte Balance 9.0 mEq/L Normal 4.0-15.0 [facility] Comment on above: Performed By: #### C MP, VIDH, GFR, LIPID, TSH #### [place] [address] Globulin 2.6 G/dL Normal [facility] Comment on above: Performed By: #### C MP, VIDH, GFR, LIPID, TSH #### [address] [address] Glucose [Mass/Vol] 91 mg/dL Normal 80-115 [facility] Comment on above: Performed By: #### C MP, VIDH, GFR, LIPID, TSH #### [place] [id number] Potassium [Moles/Vol] 4.5 mmol/L Normal 3.5-5.1 [facility] Comment on above: Performed By: #### C MP, VIDH, GFR, LIPID, TSH #### [place] [id number] Sodium [Moles/Vol] 137 mmol/L Normal 136-145 [facility] Comment on above: Performed By: #### C MP, VIDH, GFR, LIPID, TSH #### [place] [address] Total Protein 6.8 G/dL Normal 6.4-8.2 [facility] Comment on above: Performed By: #### C MP, VIDH, GFR, LIPID, TSH #### [place] [address] Urea nitrogen [Mass/Vol] 12 mg/dL Normal 7-18 [facility] Comment on above: Performed By: #### C MP, VIDH, GFR, LIPID, TSH #### [address] [address] LABORATORYOrdered By: SYSTEM SYSTEM on 03-13-2024 25-hydroxyvitamin D3 [Mass/Vol] 28.0 ng/mL Invalid Interpretation Code AO ADM SS Comment on above: Interpretive Data: I nterpretive Values Based on Total 25(OH) Vitamin D: Deficient <20 ng/mL Insufficient 20 - <30 ng/mL Sufficient 30-100 ng/mL Albumin BCP dye [Mass/Vol] 4.2 G/dL Normal 3.4 - 4.8 G/dL AO ADM SS Albumin/Globulin [Mass ratio] 1.6 {ratio} Normal 1.1 - 2.5 ratio AO ADM SS ALP [Catalytic activity/Vol] 66 U/L Normal 40 - 135 U/L AO ADM SS ALT With P-5'-P [Catalytic activity/Vol] 27 U/L Normal 14 - 59 U/L AO ADM SS AST With P-5'-P [Catalytic activity/Vol] 14 U/L Normal 10 - 40 U/L AO ADM SS Bilirubin [Mass/Vol] 0.3 mg/dL Normal 0.2 - 1 .0 mg/dL AO ADM SS Comment on above: Interpretive Data: U se of this assay is not recommended for patients undergoing treatment with eltrombopag due to the potential for falsely elevated results. Calcium [Mass/Vol] 10.1 mg/dL Normal 8.4 - 10. 2 mg/dL AO ADM SS Chloride [Moles/Vol] 100 mmol/L Normal 98 - 10 7 mmol/L AO ADM SS CO2 [Moles/Vol] 28 mmol/L Normal 23 - 31 mmol/L AO ADM SS Creatinine [Mass/Vol] 0.98 mg/dL Normal 0.55 - 1.02 mg/dL AO ADM SS Comment on above: Interpretive Data: T esting performed on Siemens Dimension EXL analyzer using a modified kinetic Ignacia technique. Electrolyte Balance 9.0 mEq/L Normal 4.0 - 15 .0 mEq/L AO ADM SS GFR/1.73 sq M.predicted among blacks MDRD (S/P/Bld) [Vol rate/Area] 70 ml/min/1.73sqm Invalid Interpretation Code AO Chemistry S Comment on above: Interpretive Data: GFR Population mean for , Non- Americans Ages 20-29 = 116 mL/min/1.73 sq.m. Ages 30-39 = 107 mL/min/1.73 sq.m. Ages 40-49 = 99 mL/min/1.73 sq.m. Ages 50-59 = 93 mL/min/1.73 sq.m. Ages 60-69 = 85 mL/min/1.73 sq.m. Ages 70+ = 75 mL/min/1.73 sq.m. Chronic Kidney Disease: Less than 60 mL/min/1.73 square meters End Stage Renal Disease: Less than 15 mL/min/1.73 square meters GFR/1.73 sq M.predicted among non-blacks MDRD (S/P/Bld) [Vol rate/Area] 58 ml/min/1.73sqm Invalid Interpretation Code AO Chemistry S Comment on above: Interpretive Data: GFR Population mean for , Non- Americans Ages 20-29 = 116 mL/min/1.73 sq.m. Ages 30-39 = 107 mL/min/1.73 sq.m. Ages 40-49 = 99 mL/min/1.73 sq.m. Ages 50-59 = 93 mL/min/1.73 sq.m. Ages 60-69 = 85 mL/min/1.73 sq.m. Ages 70+ = 75 mL/min/1.73 sq.m. Chronic Kidney Disease: Less than 60 mL/min/1.73 square meters End Stage Renal Disease: Less than 15 mL/min/1.73 square meters Globulin 2.6 G/dL Invalid Interpretation Code AO ADM SS Glucose [Mass/Vol] 91 mg/dL Normal 80 - 115 mg/dL AO ADM SS Potassium [Moles/Vol] 4.5 mmol/L Normal 3.5 - 5.1 mmol/L AO ADM SS Protein [Mass/Vol] 6.8 G/dL Normal 6.4 - 8.2 G/dL AO ADM SS Sodium [Moles/Vol] 137 mmol/L Normal 136 - 145 mmol/L AO ADM SS TSH Qn 2.84 m[IU]/L Normal 0.36 - 3.74 mcIU/mL AO ADM SS Urea nitrogen [Mass/Vol] 12 mg/dL Normal 7 - 18 mg/dL AO ADM SS Urea nitrogen/Creatinine [Mass ratio] 12 ratio Normal 7 - 27 ratio AO ADM SS LABORATORYOrdered By: Chris Ramsay on 03-13-2024 Cholesterol [Mass/Vol] 172 mg/dL Normal 0 - 200 mg/dL AO ADM SS Comment on above: Interpretive Data: C holesterol Reference Interval: Less than 200 Desirable 200-239 Borderline high risk 240 and above High risk Cholesterol in HDL [Mass/Vol] 47 mg/dL Normal 40 - 60 mg/dL AO ADM SS Cholesterol in LDL [Mass/Vol] 97 mg/dL Normal 0 - 130 mg/dL AO ADM SS Triglyceride [Mass/Vol] 139 mg/dL Normal 0 - 150 mg/dL AO ADM SS Comment on above: Interpretive Data: T riglyceride Reference Interval: Less than 150 Normal 150-199 Borderline high risk 200-499 High risk 500 or higher Very high risk LIPIDon 03-13-2024 Cholesterol [Mass/Vol] 172 mg/dL Normal 0-200 [facility] Comment on above: Result Comment: Chol esterol Reference Interval: Less than 200 Desirable 200-239 Borderline high risk 240 and above High risk Performed By: #### C MP, VIDH, GFR, LIPID, TSH ####[address] [address] Cholesterol in HDL [Mass/Vol] 47 mg/dL Normal 40-60 [facility] Comment on above: Performed By: #### C MP, VIDH, GFR, LIPID, TSH ####[address] [address] Cholesterol in LDL [Mass/Vol] 97 mg/dL Normal 0-130 [facility] Comment on above: Performed By: #### C MP, VIDH, GFR, LIPID, TSH ####[address] [address] Triglyceride [Mass/Vol] 139 mg/dL Normal 0-150 [facility] Comment on above: Result Comment: Trig lyceride Reference Interval: Less than 150 Normal 150-199 Borderline high risk 200-499 High risk 500 or higher Very high risk Performed By: #### C MP, VIDH, GFR, LIPID, TSH ####[address] [address] TSHon 03-13-2024 TSH Qn 2.84 m[IU]/L Normal 0.36-3.74 [facility] Comment on above: Performed By: #### C MP, VIDH, GFR, LIPID, TSH #### [address] [address] VIDHon 03-13-2024 Vit. D 25-Hydroxy 28.0 ng/mL Normal [facility] Comment on above: Result Comment: Inte rpretive Values Based on Total 25(OH) Vitamin D: Deficient <20 ng/mL Insufficient 20 - <30 ng/mL Sufficient 30-100 ng/mL Performed By: #### C MP, VIDH, GFR, LIPID, TSH #### [address] [address] .GFRon 08-23-2023 GFR Non- 66 ml/min/1.73sqm Normal [facility] ([place]) Comment on above: Result Comment: GFR Population mean for , Non- Americans Ages 20-29 = 116 mL/min/1.73 sq.m. Ages 30-39 = 107 mL/min/1.73 sq.m. Ages 40-49 = 99 mL/min/1.73 sq.m. Ages 50-59 = 93 mL/min/1.73 sq.m. Ages 60-69 = 85 mL/min/1.73 sq.m. Ages 70+ = 75 mL/min/1.73 sq.m. Chronic Kidney Disease: Less than 60 mL/min/1.73 square meters End Stage Renal Disease: Less than 15 mL/min/1.73 square meters Performed By: #### M G, CMP, GFR, LIPID, VIDH, TSH #### [address] [address] #### B12 #### [place] [address] GFR 79 ml/min/1.73sqm Normal [facility] ([place]) Comment on above: Result Comment: GFR Population mean for , Non- Americans Ages 20-29 = 116 mL/min/1.73 sq.m. Ages 30-39 = 107 mL/min/1.73 sq.m. Ages 40-49 = 99 mL/min/1.73 sq.m. Ages 50-59 = 93 mL/min/1.73 sq.m. Ages 60-69 = 85 mL/min/1.73 sq.m. Ages 70+ = 75 mL/min/1.73 sq.m. Chronic Kidney Disease: Less than 60 mL/min/1.73 square meters End Stage Renal Disease: Less than 15 mL/min/1.73 square meters Performed By: #### M G, CMP, GFR, LIPID, VIDH, TSH #### [address] [address] #### B12 #### [address] [address] CMPon 08-23-2023 Albumin Level 4.6 G/dL Normal 3.4-4.8 [facility] ([place]) Comment on above: Performed By: #### M G, CMP, GFR, LIPID, VIDH, TSH #### [address] [address] #### B12 #### [place] [address] Albumin/Globulin [Mass ratio] 1.6 {ratio} Normal 1.1-2.5 [facility] ([place]) Comment on above: Performed By: #### M G, CMP, GFR, LIPID, VIDH, TSH #### [place] [address] #### B12 #### [place] [address] ALP [Catalytic activity/Vol] 46 U/L Normal 40-135 [facility] ([place]) Comment on above: Performed By: #### M G, CMP, GFR, LIPID, VIDH, TSH #### [place] [address] #### B12 #### [place] [address] ALT [Catalytic activity/Vol] 34 U/L Normal 14-59 [facility] ([place]) Comment on above: Performed By: #### M G, CMP, GFR, LIPID, VIDH, TSH #### [place] [address] #### B12 #### [address] [address] AST [Catalytic activity/Vol] 17 U/L Normal 10-40 [facility] ([place]) Comment on above: Performed By: #### M G, CMP, GFR, LIPID, VIDH, TSH #### [place] [address] #### B12 #### [place] [address] Bili Total 0.3 mg/dL Normal 0.2-1.0 [facility] ([place]) Comment on above: Result Comment: Use of this assay is not recommended for patients undergoing treatment with eltrombopag due to the potential for falsely elevated results. Performed By: #### M G, CMP, GFR, LIPID, VIDH, TSH #### [place] [address] #### B12 #### [address] [address] BUN/Creatinine Ratio 16 ratio Normal 7-27 [facility] ([place]) Comment on above: Performed By: #### M G, CMP, GFR, LIPID, VIDH, TSH #### [place] [address] #### B12 #### [address] [address] Calcium [Mass/Vol] 9.9 mg/dL Normal 8.4-10.2 [facility] ([place]) Comment on above: Performed By: #### M G, CMP, GFR, LIPID, VIDH, TSH #### [place] [address] #### B12 #### [address] [address] Chloride [Moles/Vol] 102 mmol/L Normal 98-107 [facility] ([place]) Comment on above: Performed By: #### M G, CMP, GFR, LIPID, VIDH, TSH #### [place] [address] #### B12 #### [address] [address] CO2 [Moles/Vol] 28 mmol/L Normal 23-31 [facility] ([place]) Comment on above: Performed By: #### M G, CMP, GFR, LIPID, VIDH, TSH #### [place] [address] #### B12 #### [address] [address] Creatinine [Mass/Vol] 0.88 mg/dL Normal 0.55-1.02 [facility] ([place]) Comment on above: Performed By: #### M G, CMP, GFR, LIPID, VIDH, TSH #### [address] [address] #### B12 #### [address] [address] Electrolyte Balance 9.0 mEq/L Normal 4.0-15.0 [facility] ([place]) Comment on above: Performed By: #### M G, CMP, GFR, LIPID, VIDH, TSH #### [address] [address] #### B12 #### [address] [address] Globulin 2.8 G/dL Normal [facility] ([place]) Comment on above: Performed By: #### M G, CMP, GFR, LIPID, VIDH, TSH #### [address] [address] #### B12 #### [address] [address] Glucose [Mass/Vol] 87 mg/dL Normal 80-115 [facility] ([place]) Comment on above: Performed By: #### M G, CMP, GFR, LIPID, VIDH, TSH #### [address] [address] #### B12 #### [address] [address] Potassium [Moles/Vol] 4.9 mmol/L Normal 3.5-5.1 [facility] ([place]) Comment on above: Performed By: #### M G, CMP, GFR, LIPID, VIDH, TSH #### [address] [address] [address] #### B12 #### [address] [address] Sodium [Moles/Vol] 139 mmol/L Normal 136-145 [facility] ([place]) Comment on above: Performed By: #### M G, CMP, GFR, LIPID, VIDH, TSH #### [address] [address] #### B12 #### [address] [address] Total Protein 7.4 G/dL Normal 6.4-8.2 [facility] ([place]) Comment on above: Performed By: #### M G, CMP, GFR, LIPID, VIDH, TSH #### [address] [address] #### B12 #### [address] [address] Urea nitrogen [Mass/Vol] 14 mg/dL Normal 7-18 [facility] ([place]) Comment on above: Performed By: #### M G, CMP, GFR, LIPID, VIDH, TSH #### [address] [address] #### B12 #### [address] [address] LABORATORYOrdered By: Siobhan Newman on 08-23-2023 Albumin DL <= 20 mg/L (U) [Mass/Vol] 1378 mcg/dL Invalid Interpretation Code AO ADM SS Albumin/Creatinine DL <= 20 mg/L (U) [Mass ratio] 21 mcg/mg Normal 0 - 30 mcg/mg AO ADM SS Creatinine (U) [Mass/Vol] 65.7 mg/dL Normal 28.0 - 117.0 mg/dL AO ADM SS Cholesterol [Mass/Vol] 227 mg/dL High 0 - 200 mg/dL AO ADM SS Comment on above: Interpretive Data: C holesterol Reference Interval: Less than 200 Desirable 200-239 Borderline high risk 240 and above High risk Cholesterol in HDL [Mass/Vol] 43 mg/dL Normal 40 - 60 mg/dL AO ADM SS Cholesterol in LDL [Mass/Vol] 152 mg/dL High 0 - 130 mg/dL AO ADM SS Triglyceride [Mass/Vol] 162 mg/dL High 0 - 150 mg/dL AO ADM SS Comment on above: Interpretive Data: T riglyceride Reference Interval: Less than 150 Normal 150-199 Borderline high risk 200-499 High risk 500 or higher Very high risk LABORATORYOrdered By: SYSTEM SYSTEM on 08-23-2023 Albumin BCP dye [Mass/Vol] 4.6 G/dL Normal 3.4 - 4.8 G/dL AO ADM SS Albumin/Globulin [Mass ratio] 1.6 {ratio} Normal 1.1 - 2.5 ratio AO ADM SS ALP [Catalytic activity/Vol] 46 U/L Normal 40 - 135 U/L AO ADM SS ALT With P-5'-P [Catalytic activity/Vol] 34 U/L Normal 14 - 59 U/L AO ADM SS AST With P-5'-P [Catalytic activity/Vol] 17 U/L Normal 10 - 40 U/L AO ADM SS Bilirubin [Mass/Vol] 0.3 mg/dL Normal 0.2 - 1 .0 mg/dL AO ADM SS Comment on above: Interpretive Data: U se of this assay is not recommended for patients undergoing treatment with eltrombopag due to the potential for falsely elevated results. Calcium [Mass/Vol] 9.9 mg/dL Normal 8.4 - 10. 2 mg/dL AO ADM SS Chloride [Moles/Vol] 102 mmol/L Normal 98 - 10 7 mmol/L AO ADM SS CO2 [Moles/Vol] 28 mmol/L Normal 23 - 31 mmol/L AO ADM SS Creatinine [Mass/Vol] 0.88 mg/dL Normal 0.55 - 1.02 mg/dL AO ADM SS Electrolyte Balance 9.0 mEq/L Normal 4.0 - 15 .0 mEq/L AO ADM SS GFR/1.73 sq M.predicted among blacks MDRD (S/P/Bld) [Vol rate/Area] 79 ml/min/1.73sqm Invalid Interpretation Code AO Chemistry S Comment on above: Interpretive Data: GFR Population mean for , Non- Americans Ages 20-29 = 116 mL/min/1.73 sq.m. Ages 30-39 = 107 mL/min/1.73 sq.m. Ages 40-49 = 99 mL/min/1.73 sq.m. Ages 50-59 = 93 mL/min/1.73 sq.m. Ages 60-69 = 85 mL/min/1.73 sq.m. Ages 70+ = 75 mL/min/1.73 sq.m. Chronic Kidney Disease: Less than 60 mL/min/1.73 square meters End Stage Renal Disease: Less than 15 mL/min/1.73 square meters GFR/1.73 sq M.predicted among non-blacks MDRD (S/P/Bld) [Vol rate/Area] 66 ml/min/1.73sqm Invalid Interpretation Code AO Chemistry S Comment on above: Interpretive Data: GFR Population mean for , Non- Americans Ages 20-29 = 116 mL/min/1.73 sq.m. Ages 30-39 = 107 mL/min/1.73 sq.m. Ages 40-49 = 99 mL/min/1.73 sq.m. Ages 50-59 = 93 mL/min/1.73 sq.m. Ages 60-69 = 85 mL/min/1.73 sq.m. Ages 70+ = 75 mL/min/1.73 sq.m. Chronic Kidney Disease: Less than 60 mL/min/1.73 square meters End Stage Renal Disease: Less than 15 mL/min/1.73 square meters Globulin 2.8 G/dL Invalid Interpretation Code AO ADM SS Glucose [Mass/Vol] 87 mg/dL Normal 80 - 115 mg/dL AO ADM SS Potassium [Moles/Vol] 4.9 mmol/L Normal 3.5 - 5.1 mmol/L AO ADM SS Protein [Mass/Vol] 7.4 G/dL Normal 6.4 - 8.2 G/dL AO ADM SS Sodium [Moles/Vol] 139 mmol/L Normal 136 - 145 mmol/L AO ADM SS TSH Qn 1.34 m[IU]/L Normal 0.36 - 3.74 mcIU/mL AO ADM SS Urea nitrogen [Mass/Vol] 14 mg/dL Normal 7 - 18 mg/dL AO ADM SS Urea nitrogen/Creatinine [Mass ratio] 16 ratio Normal 7 - 27 ratio AO ADM SS Uric Acid Lvl 4.3 mg/dL Normal 2.6 - 6.2 mg/dL AO ADM SS LIPIDon 08-23-2023 Cholesterol [Mass/Vol] 227 mg/dL High 0-200 [facility] ([place]) Comment on above: Result Comment: Chol esterol Reference Interval: Less than 200 Desirable 200-239 Borderline high risk 240 and above High risk Performed By: #### M G, CMP, GFR, LIPID, VIDH, TSH #### [address] [address] #### B12 #### [address] [address] Cholesterol in HDL [Mass/Vol] 43 mg/dL Normal 40-60 [facility] ([place]) Comment on above: Performed By: #### M G, CMP, GFR, LIPID, VIDH, TSH #### [address] [address] #### B12 #### [address] [address] Cholesterol in LDL [Mass/Vol] 152 mg/dL High 0-130 [facility] ([place]) Comment on above: Performed By: #### M G, CMP, GFR, LIPID, VIDH, TSH #### [address] [address] #### B12 #### [address] [address] Triglyceride [Mass/Vol] 162 mg/dL High 0-150 [facility] ([place]) Comment on above: Result Comment: Trig lyceride Reference Interval: Less than 150 Normal 150-199 Borderline high risk 200-499 High risk 500 or higher Very high risk Performed By: #### M G, CMP, GFR, LIPID, VIDH, TSH #### [address] [address] #### B12 #### [address] [address] MALBRon 08-23-2023 U Creatinine 65.7 mg/dL Normal 28.0-117.0 [facility] ([place]) Comment on above: Performed By: #### M ALBR #### [address] [address] U Microalb 1378 mcg/dL Normal [facility] ([place]) Comment on above: Performed By: #### M ALBR #### [address] [address] U Ratio Alb/Cre 21 mcg/mg Normal 0-30 [facility] ([place]) Comment on above: Performed By: #### M ALBR #### [address] [place] [address] [place], [place] [address] TSHon 08-23-2023 TSH Qn 1.34 m[IU]/L Normal 0.36-3.74 [facility] ([place]) Comment on above: Performed By: #### C MP, TSH, GFR, LIPID, URIC #### [id number] [place], [place] [address] URICon 08-23-2023 Uric Acid Lvl 4.3 mg/dL Normal 2.6-6.2 [facility] ([place]) Comment on above: Performed By: #### C MP, TSH, GFR, LIPID, URIC #### [address] [address] [address] THORAX SCREENING W/O CONT RASTon 04-13-2023 CT THORAX SCREENING W/O CONTRAST ORIGINAL EXAMINATION: LOW DOSE SCREENING CT OF THE CHEST WITHOUT CZOXPYYX08/5/2023 3:58 pm TECHNIQUE: Low dose lung cancer screening CT of the chest was performed without the administration of intravenous contrast. Multiplanar reformatted images are provided for review. Automated exposure control, iterative reconstruction, and/or weight based adjustment of the mA/kV was utilized to reduce the radiation dose to as low as reasonably achievable. COMPARISON: None. HISTORY: ORDERING SYSTEM PROVIDED HISTORY: Reason for Exam: Lung Cancer Screening FINDINGS: Lung nodules: Right lung: None Left lun. 2 mm nodule in the anterolateral upper lobe, image 26, series 4. Lung findings: Right lung: No acute process. Left lung: Linear scarring in the left lower lobe. Heart and mediastinum: Unremarkable. Pleura: Unremarkable. Other: Included abdominal viscera limited imaging of the upper abdomen reveals diffuse hepatic steatosis. IMPRESSION: 1. Lung rads category 2. Recommendation: Continue low-dose annual screening. Information below is for Lung nodule tracking purposes: Nodule: S3 Other Findings: Change: Na Recall : 1yr scr Recall Type: LDCT LungRads: 2 Interpreted by: Feliberto Wood Preliminary Report By: Feliberto Wood Electronically signed By Feliberto Wood Dictated Date: 04/13/2023 8:36:18 AM Prelim Date: 04/13/2023 8:41:02 AM Sign Date: 04/13/2023 8:41:02 AM Ordering Provider: NINI ROJAS [facility] ([place]) .GFRon 03-18-2023 GFR 66 ml/min/1.73sqm [facility] ([place]) Comment on above: Result Comment: GFR Population mean for , Non- Americans Ages 20-29 = 116 mL/min/1.73 sq.m. Ages 30-39 = 107 mL/min/1.73 sq.m. Ages 40-49 = 99 mL/min/1.73 sq.m. Ages 50-59 = 93 mL/min/1.73 sq.m. Ages 60-69 = 85 mL/min/1.73 sq.m. Ages 70+ = 75 mL/min/1.73 sq.m. Chronic Kidney Disease: Less than 60 mL/min/1.73 square meters End Stage Renal Disease: Less than 15 mL/min/1.73 square meters Performed By: #### M G, CMP, GFR, LIPID, VIDH, TSH #### [address] [address] #### B12 #### [place] [address] GFR Non- 54 ml/min/1.73sqm [facility] ([place]) Comment on above: Result Comment: GFR Population mean for , Non- Americans Ages 20-29 = 116 mL/min/1.73 sq.m. Ages 30-39 = 107 mL/min/1.73 sq.m. Ages 40-49 = 99 mL/min/1.73 sq.m. Ages 50-59 = 93 mL/min/1.73 sq.m. Ages 60-69 = 85 mL/min/1.73 sq.m. Ages 70+ = 75 mL/min/1.73 sq.m. Chronic Kidney Disease: Less than 60 mL/min/1.73 square meters End Stage Renal Disease: Less than 15 mL/min/1.73 square meters Performed By: #### M G, CMP, GFR, LIPID, VIDH, TSH #### [address] [address] #### B12 #### [address] [address] B12on 03-18-2023 Cobalamin (Vitamin B12) [Mass/Vol] 371 pg/mL Normal 211-911 [facility] ([place]) Comment on above: Performed By: #### M G, CMP, GFR, LIPID, VIDH, TSH #### [address] [address] #### B12 #### [address] [address] CMPon 03-18-2023 Albumin Level 4.1 G/dL Normal 3.5-5.0 [facility] ([place]) Comment on above: Performed By: #### M G, CMP, GFR, LIPID, VIDH, TSH #### [address] [address] #### B12 #### [address] [address] Albumin/Globulin [Mass ratio] 1.5 {ratio} Normal 1.1-2.5 [facility] ([place]) Comment on above: Performed By: #### M G, CMP, GFR, LIPID, VIDH, TSH #### [address] [address] #### B12 #### [address] [address] ALP [Catalytic activity/Vol] 35 U/L Low 40-135 [facility] ([place]) Comment on above: Performed By: #### M G, CMP, GFR, LIPID, VIDH, TSH #### [address] [address] #### B12 #### [address] [address] ALT [Catalytic activity/Vol] 24 U/L Normal 14-59 [facility] ([place]) Comment on above: Performed By: #### M G, CMP, GFR, LIPID, VIDH, TSH #### [address] [address] #### B12 #### [address] [address] AST [Catalytic activity/Vol] 16 U/L Normal 10-40 [facility] ([place]) Comment on above: Performed By: #### M G, CMP, GFR, LIPID, VIDH, TSH #### [address] [address] #### B12 #### [address] [address] Bili Total 0.3 mg/dL Normal 0.2-1.0 [facility] ([place]) Comment on above: Result Comment: Use of this assay is not recommended for patients undergoing treatment with eltrombopag due to the potential for falsely elevated results. Performed By: #### M G, CMP, GFR, LIPID, VIDH, TSH #### [address] [address] #### B12 #### [place] [address] BUN/Creatinine Ratio 14 ratio Normal 7-27 [facility] ([place]) Comment on above: Performed By: #### M G, CMP, GFR, LIPID, VIDH, TSH #### [place] [address] #### B12 #### [address] [address] Calcium [Mass/Vol] 9.8 mg/dL Normal 8.4-10.2 [facility] ([place]) Comment on above: Performed By: #### M G, CMP, GFR, LIPID, VIDH, TSH #### [place] [address] #### B12 #### [address] [address] Chloride [Moles/Vol] 101 mmol/L Normal 98-107 [facility] ([place]) Comment on above: Performed By: #### M G, CMP, GFR, LIPID, VIDH, TSH #### [address] [address] #### B12 #### [address] [address] CO2 [Moles/Vol] 28 mmol/L Normal 22-29 [facility] ([place] Comment on above: Performed By: #### M G, CMP, GFR, LIPID, VIDH, TSH #### [address] [address] #### B12 #### [address] [address] Creatinine [Mass/Vol] 1.04 mg/dL High 0.55-1.02 [facility] ([place]) Comment on above: Performed By: #### M G, CMP, GFR, LIPID, VIDH, TSH #### [address] [address] #### B12 #### [address] [address] Electrolyte Balance 12.0 mEq/L Normal 4.0-15.0 [facility] ([place]) Comment on above: Performed By: #### M G, CMP, GFR, LIPID, VIDH, TSH #### [address] [address] #### B12 #### [address] [address] Globulin 2.8 G/dL Normal [facility] ([place]) Comment on above: Performed By: #### M G, CMP, GFR, LIPID, VIDH, TSH #### [address] [address] #### B12 #### [address] [address] Glucose [Mass/Vol] 76 mg/dL Normal 70-105 [facility] ([place]) Comment on above: Performed By: #### M G, CMP, GFR, LIPID, VIDH, TSH #### [address] [address] #### B12 #### [address] [address] Potassium [Moles/Vol] 4.1 mmol/L Normal 3.5-5.1 [facility] ([place]) Comment on above: Performed By: #### M G, CMP, GFR, LIPID, VIDH, TSH #### [address] [address] #### B12 #### [address] [address] Sodium [Moles/Vol] 141 mmol/L Normal 136-145 [facility] ([place]) Comment on above: Performed By: #### M G, CMP, GFR, LIPID, VIDH, TSH #### [address] [address] #### B12 #### [address] [address] Total Protein 6.9 G/dL Normal 6.4-8.2 [facility] ([place]) Comment on above: Performed By: #### M G, CMP, GFR, LIPID, VIDH, TSH #### [address] [address] #### B12 #### [address] [address] Urea nitrogen [Mass/Vol] 15 mg/dL Normal 7-18 [facility] ([place]) Comment on above: Performed By: #### M G, CMP, GFR, LIPID, VIDH, TSH #### [address] [address] #### B12 #### [address] [address] LABORATORYOrdered By: SYSTEM SYSTEM on 03-18-2023 25-hydroxyvitamin D3 [Mass/Vol] 40.0 ng/mL Invalid Interpretation Code AO ADM SS Comment on above: Interpretive Data: I nterpretive Values Based on Total 25(OH) Vitamin D: Deficient <20 ng/mL Insufficient 20 - <30 ng/mL Sufficient 30-100 ng/mL Albumin BCP dye [Mass/Vol] 4.1 G/dL Invalid Interpretation Code 3.5 - 5.0 G/dL AO ADM SS Albumin/Globulin [Mass ratio] 1.5 {ratio} Invalid Interpretation Code 1.1 - 2.5 ratio AO ADM SS ALP [Catalytic activity/Vol] 35 U/L Invalid Interpretation Code 40 - 135 U/L AO ADM SS ALT With P-5'-P [Catalytic activity/Vol] 24 U/L Invalid Interpretation Code 14 - 59 U/L AO ADM SS AST With P-5'-P [Catalytic activity/Vol] 16 U/L Invalid Interpretation Code 10 - 40 U/L AO ADM SS Bilirubin [Mass/Vol] 0.3 mg/dL Invalid Interpretation Code 0.2 - 1.0 mg/dL AO ADM SS Comment on above: Interpretive Data: U se of this assay is not recommended for patients undergoing treatment with eltrombopag due to the potential for falsely elevated results. Calcium [Mass/Vol] 9.8 mg/dL Invalid Interpretation Code 8.4 - 10.2 mg/dL AO ADM SS Chloride [Moles/Vol] 101 mmol/L Invalid Interpretation Code 98 - 107 mmol/L AO ADM SS CO2 [Moles/Vol] 28 mmol/L Invalid Interpretation Code 22 - 29 mmol/L AO ADM SS Cobalamin (Vitamin B12) [Mass/Vol] 371 pg/mL Invalid Interpretation Code 211 - 911 pg/mL AH ADM SS Creatinine [Mass/Vol] 1.04 mg/dL Invalid Interpretation Code 0.55 - 1.02 mg/dL AO ADM SS Electrolyte Balance 12.0 mEq/L Invalid Interpretation Code 4.0 - 15.0 mEq/L AO ADM SS GFR/1.73 sq M.predicted among blacks MDRD (S/P/Bld) [Vol rate/Area] 66 ml/min/1.73sqm Invalid Interpretation Code AO Chemistry S Comment on above: Interpretive Data: GFR Population mean for , Non- Americans Ages 20-29 = 116 mL/min/1.73 sq.m. Ages 30-39 = 107 mL/min/1.73 sq.m. Ages 40-49 = 99 mL/min/1.73 sq.m. Ages 50-59 = 93 mL/min/1.73 sq.m. Ages 60-69 = 85 mL/min/1.73 sq.m. Ages 70+ = 75 mL/min/1.73 sq.m. Chronic Kidney Disease: Less than 60 mL/min/1.73 square meters End Stage Renal Disease: Less than 15 mL/min/1.73 square meters GFR/1.73 sq M.predicted among non-blacks MDRD (S/P/Bld) [Vol rate/Area] 54 ml/min/1.73sqm Invalid Interpretation Code AO Chemistry S Comment on above: Interpretive Data: GFR Population mean for , Non- Americans Ages 20-29 = 116 mL/min/1.73 sq.m. Ages 30-39 = 107 mL/min/1.73 sq.m. Ages 40-49 = 99 mL/min/1.73 sq.m. Ages 50-59 = 93 mL/min/1.73 sq.m. Ages 60-69 = 85 mL/min/1.73 sq.m. Ages 70+ = 75 mL/min/1.73 sq.m. Chronic Kidney Disease: Less than 60 mL/min/1.73 square meters End Stage Renal Disease: Less than 15 mL/min/1.73 square meters Globulin 2.8 G/dL Invalid Interpretation Code AO ADM SS Glucose [Mass/Vol] 76 mg/dL Invalid Interpretation Code 70 - 105 mg/dL AO ADM SS Magnesium [Mass/Vol] 1.9 mg/dL Invalid Interpretation Code 1.8 - 2.4 mg/dL AO ADM SS Potassium [Moles/Vol] 4.1 mmol/L Invalid Interpretation Code 3.5 - 5.1 mmol/L AO ADM SS Protein [Mass/Vol] 6.9 G/dL Invalid Interpretation Code 6.4 - 8.2 G/dL AO ADM SS Sodium [Moles/Vol] 141 mmol/L Invalid Interpretation Code 136 - 145 mmol/L AO ADM SS TSH Qn 2.50 m[IU]/L Invalid Interpretation Code 0.36 - 3.74 mcIU/mL AO ADM SS Urea nitrogen [Mass/Vol] 15 mg/dL Invalid Interpretation Code 7 - 18 mg/dL AO ADM SS Urea nitrogen/Creatinine [Mass ratio] 14 ratio Invalid Interpretation Code 7 - 27 ratio AO ADM SS LABORATORYOrdered By: Sherron Whatley on 03-18-2023 Cholesterol [Mass/Vol] 231 mg/dL Invalid Interpretation Code 0 - 200 mg/dL AO ADM SS Comment on above: Interpretive Data: C holesterol Reference Interval: Less than 200 Desirable 200-239 Borderline high risk 240 and above High risk Cholesterol in HDL [Mass/Vol] 44 mg/dL Invalid Interpretation Code 40 - 60 mg/dL AO ADM SS Cholesterol in LDL [Mass/Vol] 159 mg/dL Invalid Interpretation Code 0 - 130 mg/dL AO ADM SS Triglyceride [Mass/Vol] 140 mg/dL Invalid Interpretation Code 0 - 150 mg/dL AO ADM SS Comment on above: Interpretive Data: T riglyceride Reference Interval: Less than 150 Normal 150-199 Borderline high risk 200-499 High risk 500 or higher Very high risk LIPIDon 03-18-2023 Cholesterol [Mass/Vol] 231 mg/dL High 0-200 [facility] ([place]) Comment on above: Result Comment: Chol esterol Reference Interval: Less than 200 Desirable 200-239 Borderline high risk 240 and above High risk Performed By: #### M G, CMP, GFR, LIPID, VIDH, TSH #### [address] [address] #### B12 #### [address] [address] Cholesterol in HDL [Mass/Vol] 44 mg/dL Normal 40-60 [facility] ([place]) Comment on above: Performed By: #### M G, CMP, GFR, LIPID, VIDH, TSH #### [address] [address] #### B12 #### [address] [address] Cholesterol in LDL [Mass/Vol] 159 mg/dL High 0-130 [facility] ([place]) Comment on above: Performed By: #### M G, CMP, GFR, LIPID, VIDH, TSH #### [address] [address] #### B12 #### [address] [address] Triglyceride [Mass/Vol] 140 mg/dL Normal 0-150 [facility] ([place]) Comment on above: Result Comment: Trig lyceride Reference Interval: Less than 150 Normal 150-199 Borderline high risk 200-499 High risk 500 or higher Very high risk Performed By: #### M G, CMP, GFR, LIPID, VIDH, TSH #### [address] [address] #### B12 #### [address] [address] MGon 03-18-2023 Magnesium [Mass/Vol] 1.9 mg/dL Normal 1.8-2.4 [facility] ([place]) Comment on above: Performed By: #### M G, CMP, GFR, LIPID, VIDH, TSH #### [address] [address] #### B12 #### [place] [address] TSHon 03-18-2023 TSH Qn 2.50 m[IU]/L Normal 0.36-3.74 [facility] ([place]) Comment on above: Performed By: #### M G, CMP, GFR, LIPID, VIDH, TSH #### [address] [address] #### B12 #### [place] [address] VIDHon 03-18-2023 Vit. D 25-Hydroxy 40.0 ng/mL Normal [facility] ([place]) Comment on above: Result Comment: Inte rpretive Values Based on Total 25(OH) Vitamin D: Deficient <20 ng/mL Insufficient 20 - <30 ng/mL Sufficient 30-100 ng/mL Performed By: #### M G, CMP, GFR, LIPID, VIDH, TSH #### [address] [address] #### B12 #### [place] [address] LABORATORYOrdered By: Sherron Whatley on 10-28-2022 Albumin DL <= 20 mg/L (U) [Mass/Vol] 568 mcg/dL Invalid Interpretation Code AO ADM SS Albumin/Creatinine DL <= 20 mg/L (U) [Mass ratio] 7 mcg/mg Invalid Interpretation Code 0 - 30 mcg/mg AO ADM SS Creatinine (U) [Mass/Vol] 85.7 mg/dL Invalid Interpretation Code 28.0 - 117.0 mg/dL AO ADM SS LABORATORYOrdered By: SYSTEM SYSTEM on 10-22-2022 Albumin BCP dye [Mass/Vol] 4.5 G/dL Invalid Interpretation Code 3.5 - 5.0 G/dL AO ADM SS Albumin/Globulin [Mass ratio] 1.7 {ratio} Invalid Interpretation Code 1.1 - 2.5 ratio AO ADM SS ALP [Catalytic activity/Vol] 43 U/L Invalid Interpretation Code 40 - 135 U/L AO ADM SS ALT With P-5'-P [Catalytic activity/Vol] 23 U/L Invalid Interpretation Code 14 - 59 U/L AO ADM SS AST With P-5'-P [Catalytic activity/Vol] 14 U/L Invalid Interpretation Code 10 - 40 U/L AO ADM SS Bilirubin [Mass/Vol] 0.3 mg/dL Invalid Interpretation Code 0.2 - 1.0 mg/dL AO ADM SS Calcium [Mass/Vol] 9.8 mg/dL Invalid Interpretation Code 8.4 - 10.2 mg/dL AO ADM SS Chloride [Moles/Vol] 102 mmol/L Invalid Interpretation Code 98 - 107 mmol/L AO ADM SS CO2 [Moles/Vol] 28 mmol/L Invalid Interpretation Code 22 - 29 mmol/L AO ADM SS Creatinine [Mass/Vol] 0.94 mg/dL Invalid Interpretation Code 0.55 - 1.02 mg/dL AO ADM SS Electrolyte Balance 8.0 mEq/L Invalid Interpretation Code 4.0 - 15.0 mEq/L AO ADM SS Free T3 [Mass/Vol] 2.99 pg/mL Invalid Interpretation Code 2.30 - 4.00 pg/mL AO ADM SS Free T4 [Mass/Vol] 1.10 ng/dL Invalid Interpretation Code 0.76 - 1.46 ng/dL AO ADM SS GFR/1.73 sq M.predicted among blacks MDRD (S/P/Bld) [Vol rate/Area] 74 ml/min/1.73sqm Invalid Interpretation Code AO Chemistry S GFR/1.73 sq M.predicted among non-blacks MDRD (S/P/Bld) [Vol rate/Area] 61 ml/min/1.73sqm Invalid Interpretation Code AO Chemistry S Globulin 2.6 G/dL Invalid Interpretation Code AO ADM SS Glucose [Mass/Vol] 83 mg/dL Invalid Interpretation Code 70 - 105 mg/dL AO ADM SS Potassium [Moles/Vol] 3.7 mmol/L Invalid Interpretation Code 3.5 - 5.1 mmol/L AO ADM SS Protein [Mass/Vol] 7.1 G/dL Invalid Interpretation Code 6.4 - 8.2 G/dL AO ADM SS Sodium [Moles/Vol] 138 mmol/L Invalid Interpretation Code 136 - 145 mmol/L AO ADM SS TSH Qn 2.64 m[IU]/L Invalid Interpretation Code 0.36 - 3.74 mcIU/mL AO ADM SS Urea nitrogen [Mass/Vol] 21 mg/dL Invalid Interpretation Code 7 - 18 mg/dL AO ADM SS Urea nitrogen/Creatinine [Mass ratio] 22 ratio Invalid Interpretation Code 7 - 27 ratio AO ADM SS LABORATORYOrdered By: SYSTEM SYSTEM on 08-04-2022 Albumin BCP dye [Mass/Vol] 4.4 G/dL Invalid Interpretation Code 3.5 - 5.0 G/dL AO ADM SS Albumin/Globulin [Mass ratio] 1.6 {ratio} Invalid Interpretation Code 1.1 - 2.5 ratio AO ADM SS ALP [Catalytic activity/Vol] 44 U/L Invalid Interpretation Code 40 - 135 U/L AO ADM SS ALT With P-5'-P [Catalytic activity/Vol] 26 U/L Invalid Interpretation Code 14 - 59 U/L AO ADM SS AST With P-5'-P [Catalytic activity/Vol] 15 U/L Invalid Interpretation Code 10 - 40 U/L AO ADM SS Bilirubin [Mass/Vol] 0.3 mg/dL Invalid Interpretation Code 0.2 - 1.0 mg/dL AO ADM SS Calcium [Mass/Vol] 10.3 mg/dL Invalid Interpretation Code 8.4 - 10.2 mg/dL AO ADM SS Chloride [Moles/Vol] 100 mmol/L Invalid Interpretation Code 98 - 107 mmol/L AO ADM SS CO2 [Moles/Vol] 28 mmol/L Invalid Interpretation Code 22 - 29 mmol/L AO ADM SS Creatinine [Mass/Vol] 1.03 mg/dL Invalid Interpretation Code 0.55 - 1.02 mg/dL AO ADM SS Electrolyte Balance 9.0 mEq/L Invalid Interpretation Code 4.0 - 15.0 mEq/L AO ADM SS GFR 66 ml/min/1.73sqm Invalid Interpretation Code AO Chemistry S GFR Non- 55 ml/min/1.73sqm Invalid Interpretation Code AO Chemistry S Globulin 2.8 G/dL Invalid Interpretation Code AO ADM SS Glucose [Mass/Vol] 80 mg/dL Invalid Interpretation Code 70 - 105 mg/dL AO ADM SS Potassium [Moles/Vol] 4.7 mmol/L Invalid Interpretation Code 3.5 - 5.1 mmol/L AO ADM SS Protein [Mass/Vol] 7.2 G/dL Invalid Interpretation Code 6.4 - 8.2 G/dL AO ADM SS Sodium [Moles/Vol] 137 mmol/L Invalid Interpretation Code 136 - 145 mmol/L AO ADM SS TSH Qn 3.95 m[IU]/L Invalid Interpretation Code 0.36 - 3.74 mcIU/mL AO ADM SS Urea nitrogen [Mass/Vol] 16 mg/dL Invalid Interpretation Code 7 - 18 mg/dL AO ADM SS Urea nitrogen/Creatinine [Mass ratio] 16 ratio Invalid Interpretation Code 7 - 27 ratio AO ADM SS Vit. D 25-Hydroxy 44.2 ng/mL Invalid Interpretation Code AO ADM SS LABORATORYOrdered By: Erika Rene on 08-04-2022 Cholesterol [Mass/Vol] 232 mg/dL Invalid Interpretation Code 0 - 200 mg/dL AO ADM SS Cholesterol in HDL [Mass/Vol] 58 mg/dL Invalid Interpretation Code 40 - 60 mg/dL AO ADM SS Cholesterol in LDL [Mass/Vol] 133 mg/dL Invalid Interpretation Code 0 - 130 mg/dL AO ADM SS Triglyceride [Mass/Vol] 203 mg/dL Invalid Interpretation Code 0 - 150 mg/dL AO ADM SS LABORATORYOrdered By: skyrockit SYSTEM on 07-08-2022 Calcium [Mass/Vol] 8.8 mg/dL Invalid Interpretation Code 8.4 - 10.2 mg/dL AO ADM SS Chloride [Moles/Vol] 95 mmol/L Invalid Interpretation Code 98 - 107 mmol/L AO ADM SS CO2 [Moles/Vol] 27 mmol/L Invalid Interpretation Code 22 - 29 mmol/L AO ADM SS Creatinine [Mass/Vol] 1.06 mg/dL Invalid Interpretation Code 0.55 - 1.02 mg/dL AO ADM SS Electrolyte Balance 12.0 mEq/L Invalid Interpretation Code 4.0 - 15.0 mEq/L AO ADM SS GFR 64 ml/min/1.73sqm Invalid Interpretation Code AO Chemistry S GFR Non- 53 ml/min/1.73sqm Invalid Interpretation Code AO Chemistry S Glucose [Mass/Vol] 110 mg/dL Invalid Interpretation Code 70 - 105 mg/dL AO ADM SS Potassium [Moles/Vol] 3.9 mmol/L Invalid Interpretation Code 3.5 - 5.1 mmol/L AO ADM SS Sodium [Moles/Vol] 134 mmol/L Invalid Interpretation Code 136 - 145 mmol/L AO ADM SS Urea nitrogen [Mass/Vol] 20 mg/dL Invalid Interpretation Code 7 - 18 mg/dL AO ADM SS Urea nitrogen/Creatinine [Mass ratio] 19 ratio Invalid Interpretation Code 7 - 27 ratio AO ADM SS LABORATORYOrdered By: Sandy Odell on 07-08-2022 Appearance (U) Clear (07/08/22 4:01 AM) Invalid Interpretation Code Clear AO Auto Urine SS Basophil, Absolute 0.1 103/mcL Invalid Interpretation Code 0.0 - 0.2 10^3/mcL AO Workflow SS Basophils/100 WBC (Bld) 0.8 % Invalid Interpretation Code 0.0 - 2.5 % AO Workflow SS Bilirubin Ql (U) Negative (07/08/22 4:01 AM) Invalid Interpretation Code Negative AO Auto Urine SS Color (U) Yellow (07/08/22 4:01 AM) Invalid Interpretation Code AO Auto Urine SS Eosinophil, Absolute 0.0 103/mcL Invalid Interpretation Code 0.0 - 0.4 10^3/mcL AO Workflow SS Eosinophils/100 WBC (Bld) 0.0 % Invalid Interpretation Code 0.0 - 7.0 % AO Workflow SS Erythrocyte distribution width (RBC) [Ratio] 16.0 % Invalid Interpretation Code 11.5 - 14.5 % AO Workflow SS Glucose Test strip (U) [Mass/Vol] Negative Invalid Interpretation Code Negativemg/dL AO Auto Urine SS Hematocrit (Bld) [Volume fraction] 36.3 % Invalid Interpretation Code 37.0 - 47.0 % AO Workflow SS Hemoglobin (Bld) [Mass/Vol] 12.0 G/dL Invalid Interpretation Code 12.0 - 16.0 G/dL AO Workflow SS Hemoglobin Auto test strip (U) [Mass/Vol] Trace *ABN* (07/08/22 4:01 AM) Invalid Interpretation Code Negative AO Auto Urine SS Ketones Ql (U) Negative Invalid Interpretation Code Negativemg/dL AO Auto Urine SS Lymphocyte, Absolute 0.6 103/mcL Invalid Interpretation Code 0.8 - 3.9 10^3/mcL AO Workflow SS Lymphocytes/100 WBC (Bld) 9.0 % Invalid Interpretation Code 10.0 - 50.0 % AO Workflow SS MCH (RBC) [Entitic mass] 27.8 pg Invalid Interpretation Code 27.0 - 31.2 pg AO Workflow SS MCHC 33.2 G/dL Invalid Interpretation Code 33.0 - 37.0 G/dL AO Workflow SS MCV (RBC) [Entitic vol] 83.9 fL Invalid Interpretation Code 80.0 - 94.0 fL AO Workflow SS Monocyte distribution width Auto (Bld) [Entitic vol] 23.69 Invalid Interpretation Code 0.00 - 20.00 AO Workflow SS Comment on above: Result Comment: For adults in ED, MDW>20.0 may be associated with a higher risk of sepsis during the first 12hrs of hospital admission Monocyte, Absolute 0.6 103/mcL Invalid Interpretation Code 0.2 - 1.0 10^3/mcL AO Workflow SS Monocytes/100 WBC (Bld) 8.1 % Invalid Interpretation Code 1.7 - 13.0 % AO Workflow SS Neutrophil, Absolute 5.9 103/mcL Invalid Interpretation Code 2.9 - 6.2 10^3/mcL AO Workflow SS Neutrophils/100 WBC (Bld) 82.1 % Invalid Interpretation Code 37.0 - 80.0 % AO Workflow SS Platelet mean volume (Bld) [Entitic vol] 8.5 fL Invalid Interpretation Code 7.4 - 10.4 fL AO Workflow SS Platelets (Bld) [#/Vol] 201 103/mcL Invalid Interpretation Code 130 - 400 10^3/mcL AO Workflow SS RBC (Bld) [#/Vol] 4.33 106/mcL Invalid Interpretation Code 4.20 - 5.40 10^6/mcL AO Workflow SS UA Leuk Est Negative (07/08/22 4:01 AM) Invalid Interpretation Code Negative AO Auto Urine SS UA Nitrite Negative (07/08/22 4:01 AM) Invalid Interpretation Code Negative AO Auto Urine SS UA pH 6.0 (07/08/22 4:01 AM) Invalid Interpretation Code 5.0 - 8.0 AO Auto Urine SS UA Protein Negative Invalid Interpretation Code Negativemg/dL AO Auto Urine SS UA Spec Grav 1.025 (07/08/22 4:01 AM) Invalid Interpretation Code 1.015-1.025 AO Auto Urine SS UA Specimen Type Void (07/08/22 4:01 AM) Invalid Interpretation Code AO Auto Urine SS UA Urobilinogen 0.2 E.U./dL Invalid Interpretation Code 0.2-1.0E.U./d L AO Auto Urine SS WBC (Bld) [#/Vol] 7.2 103/mcL Invalid Interpretation Code 4.6 - 10.8 10^3/mcL AO Workflow SS LABORATORYOrdered By: Susan Corral on 08-21-2021 Albumin BCP dye [Mass/Vol] 4.6 G/dL Invalid Interpretation Code 3.5 - 5.0 G/dL AO ADM SS Albumin/Globulin [Mass ratio] 1.6 {ratio} Invalid Interpretation Code 1.1 - 2.5 ratio AO ADM SS ALP [Catalytic activity/Vol] 37 U/L Invalid Interpretation Code 40 - 135 U/L AO ADM SS ALT With P-5'-P [Catalytic activity/Vol] 21 U/L Invalid Interpretation Code 14 - 59 U/L AO ADM SS AST With P-5'-P [Catalytic activity/Vol] 13 U/L Invalid Interpretation Code 10 - 40 U/L AO ADM SS Bilirubin [Mass/Vol] 0.3 mg/dL Invalid Interpretation Code 0.2 - 1.0 mg/dL AO ADM SS Calcium [Mass/Vol] 10.1 mg/dL Invalid Interpretation Code 8.4 - 10.2 mg/dL AO ADM SS Chloride [Moles/Vol] 101 mmol/L Invalid Interpretation Code 98 - 107 mmol/L AO ADM SS CO2 [Moles/Vol] 27 mmol/L Invalid Interpretation Code 22 - 29 mmol/L AO ADM SS Creatinine [Mass/Vol] 0.79 mg/dL Invalid Interpretation Code 0.55 - 1.02 mg/dL AO ADM SS Electrolyte Balance 11.0 mEq/L Invalid Interpretation Code 4.0 - 15.0 mEq/L AO ADM SS Globulin 2.9 G/dL Invalid Interpretation Code AO ADM SS Glucose [Mass/Vol] 86 mg/dL Invalid Interpretation Code 70 - 105 mg/dL AO ADM SS Potassium [Moles/Vol] 4.2 mmol/L Invalid Interpretation Code 3.5 - 5.1 mmol/L AO ADM SS Protein [Mass/Vol] 7.5 G/dL Invalid Interpretation Code 6.4 - 8.2 G/dL AO ADM SS Sodium [Moles/Vol] 139 mmol/L Invalid Interpretation Code 136 - 145 mmol/L AO ADM SS TSH Qn 2.30 m[IU]/L Invalid Interpretation Code 0.36 - 3.74 mcIU/mL AO ADM SS Urea nitrogen [Mass/Vol] 13 mg/dL Invalid Interpretation Code 7 - 18 mg/dL AO ADM SS Urea nitrogen/Creatinine [Mass ratio] 16 ratio Invalid Interpretation Code 7 - 27 ratio AO ADM SS Vit. D 25-Hydroxy 14.9 ng/mL Invalid Interpretation Code AO ADM SS LABORATORYOrdered By: Sherron Whatley on 08-21-2021 Basophil, Absolute 0.20 103/mcL Invalid Interpretation Code 0.00 - 0.19 10^3/mcL AO Auto Heme SS Basophils/100 WBC (Bld) 2.3 % Invalid Interpretation Code 0.0 - 2.5 % AO Auto Heme SS Eosinophil, Absolute 0.10 103/mcL Invalid Interpretation Code 0.00 - 0.40 10^3/mcL AO Auto Heme SS Eosinophils/100 WBC (Bld) 1.7 % Invalid Interpretation Code 0.0 - 7.0 % AO Auto Heme SS Erythrocyte distribution width (RBC) [Ratio] 14.7 % Invalid Interpretation Code 11.5 - 14.5 % AO Auto Heme SS Hematocrit (Bld) [Volume fraction] 42.5 % Invalid Interpretation Code 37.0 - 47.0 % AO Auto Heme SS Hemoglobin (Bld) [Mass/Vol] 14.1 G/dL Invalid Interpretation Code 12.0 - 16.0 G/dL AO Auto Heme SS Lymphocyte, Absolute 1.80 103/mcL Invalid Interpretation Code 0.77 - 3.85 10^3/mcL AO Auto Heme SS Lymphocytes/100 WBC (Bld) 26.9 % Invalid Interpretation Code 10.0 - 50.0 % AO Auto Heme SS MCH (RBC) [Entitic mass] 29.0 pg Invalid Interpretation Code 27.0 - 31.2 pg AO Auto Heme SS MCHC (RBC) [Mass/Vol] 33.2 G/dL Invalid Interpretation Code 33.0 - 37.0 G/dL AO Auto Heme SS MCV (RBC) [Entitic vol] 87.3 fL Invalid Interpretation Code 80.0 - 94.0 fL AO Auto Heme SS Monocyte, Absolute 0.50 103/mcL Invalid Interpretation Code 0.15 - 1.00 10^3/mcL AO Auto Heme SS Monocytes/100 WBC (Bld) 7.2 % Invalid Interpretation Code 1.7 - 13.0 % AO Auto Heme SS Neutrophil, Absolute 4.10 103/mcL Invalid Interpretation Code 2.85 - 6.16 10^3/mcL AO Auto Heme SS Neutrophils/100 WBC (Bld) 61.9 % Invalid Interpretation Code 37.0 - 80.0 % AO Auto Heme SS Platelet mean volume (Bld) [Entitic vol] 9.1 fL Invalid Interpretation Code 7.4 - 10.4 fL AO Auto Heme SS Platelets (Bld) [#/Vol] 277 103/mcL Invalid Interpretation Code 130 - 400 10^3/mcL AO Auto Heme SS RBC (Bld) [#/Vol] 4.87 106/mcL Invalid Interpretation Code 4.20 - 5.40 10^6/mcL AO Auto Heme SS WBC (Bld) [#/Vol] 6.70 103/mcL Invalid Interpretation Code 4.60 - 10.80 10^3/mcL AO Auto Heme SS LABORATORYOrdered By: skyrockit SYSTEM on 08-21-2021 Cobalamin (Vitamin B12) [Mass/Vol] 429 pg/mL Invalid Interpretation Code 211 - 911 pg/mL ADM SS GFR 91 ml/min/1.73sqm Invalid Interpretation Code AO Chemistry S GFR Non- 75 ml/min/1.73sqm Invalid Interpretation Code AO Chemistry S LABORATORYOrdered By: Leola Estrada on 08-21-2021 Hep C Ab Non-Reactive (08/21/21 12:06 PM) Invalid Interpretation Code Non-Reactive ADM SS Hep C Ab Int Nonreactive: Samples with a value < 0.80 are considered nonreactive (negative) for antibodies to HCV.A negative test result does not exclude the possibility of exposure to or infection with HCV. HCV antibodies may be undetectable in some stages of the infection and in some clinical conditions. Invalid Interpretation Code Chemistry S LABORATORYOrdered By: Susan Carrillo on 05-13-2021 Albumin BCP dye [Mass/Vol] 4.6 G/dL Invalid Interpretation Code 3.5 - 5.0 G/dL AO ADM SS Albumin/Globulin [Mass ratio] 1.7 {ratio} Invalid Interpretation Code 1.1 - 2.5 ratio AO ADM SS ALP [Catalytic activity/Vol] 41 U/L Invalid Interpretation Code 40 - 135 U/L AO ADM SS ALT With P-5'-P [Catalytic activity/Vol] 22 U/L Invalid Interpretation Code 14 - 59 U/L AO ADM SS AST With P-5'-P [Catalytic activity/Vol] 21 U/L Invalid Interpretation Code 10 - 40 U/L AO ADM SS Bilirubin [Mass/Vol] 0.3 mg/dL Invalid Interpretation Code 0.2 - 1.0 mg/dL AO ADM SS Calcium [Mass/Vol] 9.9 mg/dL Invalid Interpretation Code 8.4 - 10.2 mg/dL AO ADM SS Chloride [Moles/Vol] 95 mmol/L Invalid Interpretation Code 98 - 107 mmol/L AO ADM SS Cholesterol [Mass/Vol] 198 mg/dL Invalid Interpretation Code 0 - 200 mg/dL AO ADM SS Cholesterol in HDL [Mass/Vol] 52 mg/dL Invalid Interpretation Code 40 - 60 mg/dL AO ADM SS Cholesterol in LDL [Mass/Vol] 130 mg/dL Invalid Interpretation Code 0 - 130 mg/dL AO ADM SS CO2 [Moles/Vol] 28 mmol/L Invalid Interpretation Code 22 - 29 mmol/L AO ADM SS Creatinine [Mass/Vol] 1.10 mg/dL Invalid Interpretation Code 0.55 - 1.02 mg/dL AO ADM SS Electrolyte Balance 9.0 mEq/L Invalid Interpretation Code AO ADM SS Globulin 2.7 G/dL Invalid Interpretation Code AO ADM SS Glucose [Mass/Vol] 97 mg/dL Invalid Interpretation Code 70 - 105 mg/dL AO ADM SS Potassium [Moles/Vol] 4.0 mmol/L Invalid Interpretation Code 3.5 - 5.1 mmol/L AO ADM SS Protein [Mass/Vol] 7.3 G/dL Invalid Interpretation Code 6.4 - 8.2 G/dL AO ADM SS Sodium [Moles/Vol] 132 mmol/L Invalid Interpretation Code 136 - 145 mmol/L AO ADM SS Triglyceride [Mass/Vol] 82 mg/dL Invalid Interpretation Code 0 - 150 mg/dL AO ADM SS TSH Qn 2.67 m[IU]/L Invalid Interpretation Code 0.36 - 3.74 mcIU/mL AO ADM SS Urea nitrogen [Mass/Vol] 19 mg/dL Invalid Interpretation Code 7 - 18 mg/dL AO ADM SS Urea nitrogen/Creatinine [Mass ratio] 17 ratio Invalid Interpretation Code 7 - 27 ratio AO ADM SS LABORATORYOrdered By: SYSTEM SYSTEM on 05-13-2021 GFR 62 ml/min/1.73sqm Invalid Interpretation Code AO Chemistry S GFR Non- 51 ml/min/1.73sqm Invalid Interpretation Code AO Chemistry S Vital Signs Date Time Vital Sign Value Performing Clinician Dilia valdesy 07-08-2022 05:45-0500 Diastolic Blood Pressure Non-Invasive [address] MALA FARFAN DO [facility] 07-08-2022 05:45-0500 Heart rate 92 /min DR MALA FARFAN DO [facility] 07-08-2022 05:45-0500 Respiratory rate 18 /min DR MALA FARFAN DO [facility] 07-08-2022 05:45-0500 Systolic Blood Pressure Non-Invasive [address] MALA FARFAN DO [facility] 07-08-2022 04:47-0500 Heart rate 101 /min DR MALA FARFAN DO [facility] 07-08-2022 04:47-0500 Respiratory rate 18 /min DR MALA FARFAN DO [facility] 07-08-2022 03:39-0500 Body height [address] MALA FARFAN DO [facility] 07-08-2022 03:39-0500 Body temperature 98.24 [degF] DR MALA FARFAN DO [facility] 07-08-2022 03:39-0500 Body weight 63.[address] MALA FARFAN DO [facility] 07-08-2022 03:39-0500 Diastolic Blood Pressure Non-Invasive [address] MALA FARFAN DO [facility] 07-08-2022 03:39-0500 Heart rate 99 /min DR MALA FARFAN DO [facility] 07-08-2022 03:39-0500 Respiratory rate 18 /min DR MALA FARFAN DO [facility] 07-08-2022 03:39-0500 Systolic Blood Pressure Non-Invasive [address] MALA FARFAN DO [facility] Encounters Encounter Date Encounter Type Care Provider Facility [facility]: [facility] Start: 01-30-2025 End: 01-30-2025 ambulatory Zuri Noel Facility:[facility] Start: 01-08-2025 End: 01-12-2025 ambulatory NINI CRYSTAL DO [facility] Start: 01-08-2025 End: 01-12-[address] ANDREA CR DO [facility] Start: 12-26-2024 End: 12-27-2024 Emergency department patient visit DR MALA FARFAN DO [facility] Start: 09-06-2024 End: 09-10-2024 ambulatory NINI VAUGHNY DO Facility[facility] Start: 09-06-2024 End: 09-10-2024 Outreach Lab NINI ROJAS DO [facility] Start: 04-16-2024 End: 04-16-2024 ambulatory NINISUSAN VAUGHNY DO Facility[facility] Start: 04-16-2024 End: 04-16-2024 Patient encounter procedure NINI BURKSLAY DO [facility] Start: 04-04-2024 End: 04-04-2024 ambulatory NINI CRYSTAL DO Facility[facility] Start: 04-04-2024 End: 04-04-2024 Patient encounter procedure NINI CRYSTAL DO [facility] Start: 03-13-2024 End: 03-13-2024 ambulatory NINI CRYSTAL DO Facility[facility] [place] Start: 03-13-2024 End: 03-13-2024 Patient encounter procedure NINI ROJAS DO [facility] Start: 12-05-2023 End: 12-05-2023 ambulatory NINI ROJAS DO Facility:[facility] Start: 12-05-2023 End: 12-05-2023 Patient encounter procedure NINI ROJAS DO [facility] Start: 08-23-2023 End: 08-27-2023 ambulatory NINI BURKSLAJessica HAMMOND Facility:[facility] Start: 08-23-2023 End: 08-27-2023 Outreach Lab NINI ROJAS DO [facility] Start: 08-23-2023 End: 08-23-2023 ambulatory NINI BURKSLAJessica HAMMOND Facility:[facility] Start: 08-23-2023 End: 08-23-2023 Patient encounter procedure NINI ROJAS DO [facility] Start: 04-12-2023 End: 04-12-2023 ambulatory NINI ROJAS DO Facility:[facility] Start: 04-12-2023 End: 04-12-2023 Patient encounter procedure NINI Healy CRYSTAL DO [facility] Start: 03-18-2023 End: 03-18-2023 ambulatory NINI ROJAS DO Facility:[facility] Start: 03-18-2023 End: 03-18-2023 Patient encounter procedure NINI ROJAS DO [facility] Start: 03-18-2023 End: 03-18-2023 Well adult monitoring check done NINI ROJAS DO [facility] Start: 11-08-2022 End: 11-08-2022 Patient encounter procedure NINI ROJAS DO [facility] Start: 10-28-2022 End: 11-01-2022 Outreach Lab NINI Healy CRYSTAL DO [facility] Start: 10-22-2022 End: 10-22-2022 Patient encounter procedure NINI Healy CRYSTAL DO [facility] Start: 08-20-2022 End: 08-20-2022 Patient encounter procedure NINI Healy CRYSTAL DO [facility] Start: 08-04-2022 End: 08-04-2022 Patient encounter procedure NINI Healy CRYSTAL DO [facility] Start: 07-27-2022 End: 07-27-2022 Patient encounter procedure NINI ROJAS DO [facility] Start: 07-08-2022 End: 07-08-2022 Emergency department patient visit DR MALA FARFAN DO [facility] Start: 09-11-2021 End: 09-11-2021 Patient encounter procedure NINI Healy CRYSTAL DO [facility] Start: 08-21-2021 End: 08-21-2021 Patient encounter procedure NINI M CRYSTAL DO [facility] Start: 05-13-2021 End: 05-13-2021 Patient encounter procedure NINI Monet ROJAS DO [facility] Procedures Date Procedure Procedure Detail Performing Clinician Start: 08-23-2005 Dilation and curetta ge of uterus NINI ROJAS DO Comment on above: for incomplete abort ion Start: 05-09-2005 Hysterectomy NINI LUNA DO Comment on above: Dr. Tinoco Lumpectomy breast sa mple (specimen) NINI ROJAS DO None (qualifier value) KRIST IN CRYSTAL DO Immunizations Immunization Date Immunization Notes Care Provider [facility] 02-22-2024 influenza virus vacc ine, unspecified formulation NINI ROJAS DO [facility] 03-07-2023 influenza virus vacc ine, unspecified formulation NINI ROJAS DO [facility] 05-07-2022 influenza, injectabl e, quadrivalent, contains preservative; Translations: [Fluarix PF Quadrivalent ] DR MALA FARFAN DO [facility] 12-10-2021 COVID-19, mRNA, LNP- S, PF, 30 mcg/0.3 mL dose; Translations: [[employer] COVID-19 Vaccine (Do Not Dilute)] DR MALA FARFAN DO [facility] 11-25-2021 tetanus toxoid, redu gavin diphtheria toxoid, and acellular pertussis vaccine, adsorbed; Translations: [Boostrix (Tdap)] DR MALA FARFAN DO [facility] 11-25-2021 zoster vaccine recombinant; Translations: [Shingrix] DR MALA FARFAN DO [facility] 08-21-2021 zoster vaccine recombinant; Translations: [Shingrix] NINI ROJAS DO [facility] 04-13-2021 SARS-CoV-2 mRNA (tozinameran) vaccine NINI ROJAS DO [facility] 02-02-2021 influenza virus vacc ine, unspecified formulation NINI ROJAS DO [facility] 06-04-2020 SARS-CoV-2 mRNA (tozinameran) vaccine NINI ROJAS DO [facility] 05-14-2020 SARS-CoV-2 mRNA (tozinameran) vaccine NINI ROJAS DO [facility] 05-24-2019 influenza, injectabl e, quadrivalent, preservative free; Translations: [Fluarix PF Quadrivalent ] NINI ROJAS DO [facility] 02-06-2018 influenza virus vacc ine, unspecified formulation NINI ROJAS DO [facility] 02-06-2015 influenza virus vacc ine, unspecified formulation NINI ROJAS DO [facility] 03-09-2014 influenza virus vacc ine, unspecified formulation NINI ROJAS DO [facility] 03-22-2012 tetanus toxoid, redu gavin diphtheria toxoid, and acellular pertussis vaccine, adsorbed NINI CRYSTAL DO [facility] 11-26-2009 pneumococcal polysaccharide vaccine, 23 valent NINI ROJAS DO [facility] Payers Date Payer Category Payer Self-pay 2024 Private Health Insurance [facility] [id number] 2024 Unknown [id number] 2023 Unknown [id number] 1963 Unknown [id number] 2.16.8 [id number]. 1963 Unknown [id number] 2.16.8 [id number]. 1963 Unknown [id number] 2.16.8 [id number]. 1963 Unknown [id number] 2.16.8 [id number]. 1963 Unknown [id number] 2.16.8 [id number]. 1963 Unknown [id number] 2.16. [id number]. 1963 Unknown [id number] 2.16. [id number]. 1963 Unknown [id number] 2.16.8 40.1.127354.3.579.2. 1963 Unknown [id number] 2.16.8 [id number]. 1963 Unknown [id number] 2.16.8 [id number] 1963 Unknown [id number] 2.16.8 [id number] Unknown [id number] 2.16.8 [id number] Unknown [id number] 2.16.8 [id number] Social History Date Type Detail Facility Start: 05-24-2019 End: 12-26-2024 Light tobacco smoker (finding) [facility] Sex Assigned At Female [facility] Start: 07-13-2022 Tobacco smoking status Ex-smoker (fi nding) [facility] Sexual Orientation [facility] Start: 11-01-2018 Sex Female (finding) [facility] Functional Status Date Assessment Result Facility 07-08-2022 Functional Status Ambulating in lynne, Ambulating in room, Awake, Bathroom privileges [facility] 07-08-2022 Functional Status Standard Safet y ID band on, Allergy Band on, Call device within reach, Bed in low position, Wheels locked, Upper/Half-Length side-rails up, personal items within reach, Visitor at bedside [facility] Mental Status Date Assessment Result Facility 07-08-2022 Mental Status Orientation Oriented x 4 [facility] 07-08-2022 Mental Status [facility] Clinical Notes 07-08-2022 to 01-10-2025 Note Date & Type Note Facility 01-10-2025 Note . MICRO - Microbiology PROCEDURE: Urine Culture [*1] SOURCE: Urine, Clean Catch BODY SITE: COLLECTED DATE/TIME: 01/08/2025 10:25 EDT RECEIVED DATE/TIME: 01/08/2025 15:32 EDT START DATE/TIME: 01/08/2025 15:32 EDT FREE TEXT SOURCE: FINAL REPORTS Final Report [] Verified Date/Time/Personnel: 01/10/2025 08:09 EDT 10,000 - 50,000 cfu/ml Escherichia coli PRELIMINARY REPORTS Preliminary Report [] Verified Date/Time/Personnel: 01/09/2025 10:43 EDT 10,000 - 50,000 cfu/ml Escherichia coli TATYANA to follow Preliminary Report [] Verified Date/Time/Personnel: 01/08/2025 16:59 EDT Specimen received in lab. SUSCEPTIBILITY RESULTS Escherichia coli Antibiotic TATYANA Dilut TATYANA Inter Ampicillin <=8 Susceptible Ampicillin/ <=4/2 Susceptible Sulbactam Aztreonam <=4 Susceptible Cefazolin <=2 Susceptible Cefepime <=2 Susceptible Ceftolozane/ <=2 Susceptible Tazobactam Ciprofloxacin <=0.25 Susceptible Ertapenem <=0.5 Susceptible Gentamicin <=2 Susceptible ID Panel Not Not Applicable Applicable Imipenem <=1 Susceptible Levofloxacin <=0.5 Susceptible Meropenem <=1 Susceptible Minocycline <=4 Susceptible Nitrofurantoin <=32 Susceptible Trimethoprim/ <=0.5/9.5 Susceptible Sulfa Performing Locations *1: This test was performed at: [facility], [address] [place] [address], [facility] , [facility] 12-27-2024 Hospital Discharg e instructions Patient Education 12/27/2024 00:37:38 Kidney Stone w/ Colic Kidney Stone with Pain The sharp cramping pain on either side of your lower back and nausea/vomiting that you have are because of a small stone that has formed in the kidney. It is now passing down a narrow tube (ureter) on its way to your bladder. Once the stone reaches your bladder, the pain will often stop. But it may come back as the stone continues to pass out of the bladder and through the urethra. The stone may pass in your urine stream in one piece. The size may be 1/16 inch to 1/4 inch (1 mm to 6 mm). Or, the stone may break up into desiree fragments that you may not even notice. Once you have had a kidney stone, you are at risk of getting another one in the future. There are 4 types of kidney stones. Eighty percent are calcium stones mostly calcium oxalate but also some with calcium phosphate. The other 3 types include uric acid stones, struvite stones (from a preceding infection), and rarely, cystine stones. Most stones will pass on their own, but may take from a few hours to a few days. Sometimes the stone is too large to pass by itself. In that case, the healthcare provider will need to use other ways to remove the stone. These techniques include: Lithotripsy. This uses ultrasound waves to break up the stone. Ureteroscopy. This pushes a basket-like instrument through the urethra and bladder and into the ureter to pull out the stone. Various types of direct surgery through the skin Home care The following are general care guidelines: Drink plenty of fluids. This means at least 12, 8-ounce glasses of fluid mostly water a day. Each time you urinate, do so in a jar. Pour the urine from the jar through the strainer and into the toilet. Continue doing this until 24 hours after your pain stops. By then, if there was a kidney stone, it should pass from your bladder. Some stones dissolve into sand-like particles and pass right through the strainer. In that case, you won t ever see a stone. Save any stone that you find in the strainer and bring it to your healthcare provider to look at. It may be possible to stop certain types of stones from forming. For this reason, it is important to know what kind of stone you have. Try to stay as active as possible. This will help the stone pass. Don't stay in bed unless your pain keeps you from getting up. You may notice a red, pink, or brown color to your urine. This is normal while passing a kidney stone. If you develop pain, you may take ibuprofen or naproxen for pain, unless another medicine was prescribed. If you have chronic liver or kidney disease, talk with your healthcare provider before taking these medicines. Also talk with your provider if you've had a stomach ulcer or GI bleeding. Preventing stones Each year for the next 5 to 7 years, you are at risk that a new stone will form. Your risk is a 50% chance over this time period. The risk is higher if you have a family history of kidney stones or have certain chronic illnesses like hypertension, obesity, or diabetes. But you can make changes to your lifestyle and diet that can lower your risk for another stone. Most kidney stones are made of calcium. The following is advice for preventing another calcium stone. If you don t know the type of stone you have, follow this advice until the cause of your stone is found. Things that help: The most important thing you can do is to drink plenty of fluids each day. See home care above. Eat foods that contain phytates. These include wheat, rice, rye, barley, and beans. Phytates are substances that may lower your risk for any type of stone to form. Eat more fruits and vegetables. Choose those that are high in potassium. Eat foods high in natural citrate like fruit and low-sugar fruit juices. Having too little calcium in your diet can put you at risk for calcium kidney stones. Eat a normal amount of calcium in your diet and talk with your healthcare provider if you are taking calcium supplements. Cutting back on your calcium intake may raise your risk. New research shows that eating calcium-rich and oxalate-rich foods together lowers your risk for stones by binding the minerals in the stomach and intestines before they can reach the kidneys. Limit salt intake to 2 grams (1 teaspoon) per day. Use limited amounts when cooking, and don t add salt at the table. Processed and canned foods are usually high in salt. Spinach, rhubarb, peanuts, cashews, almonds, grapefruit, and grapefruit juice are all high oxalate foods. You should limit how much of these you eat. Or eat them with calcium-rich foods. These include dairy products, dark leafy greens, soy products, and calcium-enriched foods. Reducing the amount of animal meat and high protein foods in your diet may lower your risk for uric acid stones. Avoid excess sugar (sucrose) and fructose (sweetener in many soft drinks) in your diet. If you take vitamin C as a supplement, don't take more than 1,000 mg a day. A dietitian or your healthcare provider can give you information about changes in your diet that will help prevent more kidney stones from forming. Follow-up care Follow up with your healthcare provider, or as advised, if the pain lasts more than 48 hours. Talk with your provider about urine and blood tests to find out the cause of your stone. If you had an X-ray, CT scan, or other diagnostic test, you will be told of any new findings that may affect your care. Call 911 Call 911 if you have any of these: Weakness, dizziness, or fainting When to seek medical advice Call your healthcare provider right away if any of these occur: Pain that is not controlled by the medicine given Repeated vomiting or unable to keep down fluids Fever of 100.4 F (38 C) or higher, or as directed by your healthcare provider Passage of solid red or brown urine (can't see through it) or urine with lots of blood clots Foul-smelling or cloudy urine Unable to pass urine for 8 hours and increasing bladder pressure [id number] [employer]. [address] [place] [address]. All rights reserved. This information is not intended as a substitute for professional medical care. Always follow your healthcare professional's instructions. Follow Up Care 12/26/2024 21:56:32 With:YURI GALEAS MD, Urology Service Address: [address] [place] [address] [place], [place] [id number]- [phone] When:2-4 days With:NINI ROJAS DO Address: [address] [place] [phone] When:2-4 days [facility] 12-27-2024 Note Discharge Instructions Thank you for allowing [facility] to assist you with your healthcare needs. The following is important discharge information regarding your hospital visit. Diagnosis from Today's Visit Kidney stone What to Do Next Instructions from Your Care Team No qualifying data available. Post Acute Orders No qualifying data available. You Need to Schedule the Following Appointments Follow Up with YURI GALEAS MD, Urology Service When:Within 2-4 days Where:[address] [place] [address] [place], [place] [id number]- [phone] Follow Up with NINI ROJAS DO When:Within 2-4 days Where:[address] [place] [address] [phone] Allergies Percocet Phenergan Vomiting Vicodin Vomiting antihistamines Irregular heart beat codeine Rash, Breathing abnormal penicillins Rash, vomiting Medications Please ask your primary doctor or pharmacist before taking any other medication not listed, including over the counter drugs, herbal medications, vitamins and or supplements as they may interact with your home medications. What How Much When Why Instructions Last Dose New acetaminophen-hydrocodone (Tyler 325- 5 mg oral tablet) 1 tab(s) by mouth Three (3) times a day Kidney stone Duration: 3 Days Printed Prescription New ondansetron (ondansetron 4 mg oral tablet, disintegrating) 1 tab(s) by mouth Every 8 hours Duration: 3 Days Printed Prescription New tamsulosin (Flomax 0.4 mg oral capsule) 1 cap by mouth Once a day after a meal Duration: 3 Days Printed Prescription Unchanged amLODIPine (amLODIPine 10 mg oral tablet) 1 tab(s) by mouth Once a day Hypertension Unchanged aspirin (aspirin 81 mg oral delayed release tablet) 1 tab(s) by mouth Every day Unchanged citalopram (citalopram 40 mg oral tablet) 1 tab(s) by mouth Once a day Recurrent major depression Situational anxiety Unchanged rosuvastatin (rosuvastatin 5 mg oral tablet) 1 tab(s) by mouth Once a day Hyperlipidemia decreased dose Please take this list to your next doctor s visit. Bring all medications you take, including over the counter medications, herbals and other supplements with you to your doctor s visit. Patients and families are reminded to discard old lists and to update any records with all medication providers or retail pharmacies. Education Materials Kidney Stone with Pain The sharp cramping pain on either side of your lower back and nausea/vomiting that you have are because of a small stone that has formed in the kidney. It is now passing down a narrow tube (ureter) on its way to your bladder. Once the stone reaches your bladder, the pain will often stop. But it may come back as the stone continues to pass out of the bladder and through the urethra. The stone may pass in your urine stream in one piece. The size may be 1/16 inch to 1/4 inch (1 mm to 6 mm). Or, the stone may break up into desiree fragments that you may not even notice. Once you have had a kidney stone, you are at risk of getting another one in the future. There are 4 types of kidney stones. Eighty percent are calcium stones mostly calcium oxalate but also some with calcium phosphate. The other 3 types include uric acid stones, struvite stones (from a preceding infection), and rarely, cystine stones. Most stones will pass on their own, but may take from a few hours to a few days. Sometimes the stone is too large to pass by itself. In that case, the healthcare provider will need to use other ways to remove the stone. These techniques include: Lithotripsy. This uses ultrasound waves to break up the stone. Ureteroscopy. This pushes a basket-like instrument through the urethra and bladder and into the ureter to pull out the stone. Various types of direct surgery through the skin Home care The following are general care guidelines: Drink plenty of fluids. This means at least 12, 8-ounce glasses of fluid mostly water a day. Each time you urinate, do so in a jar. Pour the urine from the jar through the strainer and into the toilet. Continue doing this until 24 hours after your pain stops. By then, if there was a kidney stone, it should pass from your bladder. Some stones dissolve into sand-like particles and pass right through the strainer. In that case, you won t ever see a stone. Save any stone that you find in the strainer and bring it to your healthcare provider to look at. It may be possible to stop certain types of stones from forming. For this reason, it is important to know what kind of stone you have. Try to stay as active as possible. This will help the stone pass. Don't stay in bed unless your pain keeps you from getting up. You may notice a red, pink, or brown color to your urine. This is normal while passing a kidney stone. If you develop pain, you may take ibuprofen or naproxen for pain, unless another medicine was prescribed. If you have chronic liver or kidney disease, talk with your healthcare provider before taking these medicines. Also talk with your provider if you've had a stomach ulcer or GI bleeding. Preventing stones Each year for the next 5 to 7 years, you are at risk that a new stone will form. Your risk is a 50% chance over this time period. The risk is higher if you have a family history of kidney stones or have certain chronic illnesses like hypertension, obesity, or diabetes. But you can make changes to your lifestyle and diet that can lower your risk for another stone. Most kidney stones are made of calcium. The following is advice for preventing another calcium stone. If you don t know the type of stone you have, follow this advice until the cause of your stone is found. Things that help: The most important thing you can do is to drink plenty of fluids each day. See home care above. Eat foods that contain phytates. These include wheat, rice, rye, barley, and beans. Phytates are substances that may lower your risk for any type of stone to form. Eat more fruits and vegetables. Choose those that are high in potassium. Eat foods high in natural citrate like fruit and low-sugar fruit juices. Having too little calcium in your diet can put you at risk for calcium kidney stones. Eat a normal amount of calcium in your diet and talk with your healthcare provider if you are taking calcium supplements. Cutting back on your calcium intake may raise your risk. New research shows that eating calcium-rich and oxalate-rich foods together lowers your risk for stones by binding the minerals in the stomach and intestines before they can reach the kidneys. Limit salt intake to 2 grams (1 teaspoon) per day. Use limited amounts when cooking, and don t add salt at the table. Processed and canned foods are usually high in salt. Spinach, rhubarb, peanuts, cashews, almonds, grapefruit, and grapefruit juice are all high oxalate foods. You should limit how much of these you eat. Or eat them with calcium-rich foods. These include dairy products, dark leafy greens, soy products, and calcium-enriched foods. Reducing the amount of animal meat and high protein foods in your diet may lower your risk for uric acid stones. Avoid excess sugar (sucrose) and fructose (sweetener in many soft drinks) in your diet. If you take vitamin C as a supplement, don't take more than 1,000 mg a day. A dietitian or your healthcare provider can give you information about changes in your diet that will help prevent more kidney stones from forming. Follow-up care Follow up with your healthcare provider, or as advised, if the pain lasts more than 48 hours. Talk with your provider about urine and blood tests to find out the cause of your stone. If you had an X-ray, CT scan, or other diagnostic test, you will be told of any new findings that may affect your care. Call 911 Call 911 if you have any of these: Weakness, dizziness, or fainting When to seek medical advice Call your healthcare provider right away if any of these occur: Pain that is not controlled by the medicine given Repeated vomiting or unable to keep down fluids Fever of 100.4 F (38 C) or higher, or as directed by your healthcare provider Passage of solid red or brown urine (can't see through it) or urine with lots of blood clots Foul-smelling or cloudy urine Unable to pass urine for 8 hours and increasing bladder pressure [id number] [employer]. [address] [place] [address], [place] [address]. All rights reserved. This information is not intended as a substitute for professional medical care. Always follow your healthcare professional's instructions. Additional Information VACCINATE! IT SAVES LIVES! Members of the community who have not yet received the COVID-19 vaccine and would like to receive it can visit one of [facility] vaccine clinics. There are many vaccine clinic locations within the [facility]. For locations and available times, please visit [email or web address] It is important to note that some COVID mobile vaccine clinics are held outdoors and may be canceled in rainy or stormy conditions. To learn more about pediatric vaccinations (ages 5-11), we invite you to visit the [facility] webpage. [email or web address] To learn more about the COVID-19 vaccine, we invite you to visit the CDC website for a list of frequently asked questions. https://www.cdc.gov/coronavirus/ 2019-ncov/vaccines/faq.html [employer] Patient Portal Access Instructions: Stay connected with your healthcare team and access your personal medical information anytime with the [employer] Patient Portal. If you would like a full copy of your medical records please contact the [facility] Medical Records Department Tuesday through Tuesday between 8a.m. and 4:30p.m. Please follow the directions below to access the portal: 1.Access the email account you provided upon registration to the [facility].2.Look for an invitation email from [facility].3.Open the email and access the invitation link: Accept Invitation to [employer]4.Fill in the required sands to create your account. Sign into [email or web address] with your username and password that you created in the above steps to stay up to date. You can then view a summary of results, a summary of your visits, and the ability to download your summaries to your computer or send the information securely to a physician. Remember that your healthcare information is confidential, so carefully consider who you will allow to register on the [employer] Patient Portal for access to your information. You can also access the [employer] Patient Portal on the [employer] [place]. Simply click on Health Records under Health Data and then click on the [employer] logo. HOW TO SAFELY DISPOSE OF PRESCRIPTION MEDICATIONS Please use one of the following methods to safely dispose of your unused medications. 1.Use a drug disposal kit: the drug disposal pouch allows you to safely discard your old and unused drugs. Ask your nurse to give you one when you are discharged.2.Visit a local take-back location: Many local pharmacies and police departments have programs that collect old and unwanted prescription drugs. Call your local pharmacy or go to http://[employer]/3W3Lc5q to find one close to you.3.Make use of household items: Use cat litter or old coffee grounds to dispose medications if other options are not available. Mix your drugs with these household products, seal them in an airtight container and throw it into the garbage. Call [facility]: [phone] to be sure your drugs can be disposed of in this way. Some medicines may require a different approach.4.Never flush your medications down the toilet. IF YOU HAVE BEEN PRESCRIBED AN OPIOIDS FOR PAIN If you have been prescribed an opioid (such as hydrocodone, oxycodone or morphine), it is critical to understand the possible side effects and risks of opioid pain medications. Even when taken as directed, opioids can have several side effects including: Tolerance, meaning you might need to take more of a medication for the same pain relief. Nausea, vomiting and/or constipation. Sleepiness, dizziness, dry mouth, confusion, depression or itching. Physical dependence, meaning you have withdrawal symptoms when a medication is stopped ? this can develop within a few days. KNOW YOUR RESPONSIBILITIES It is important to know exactly how much and how often to take the opioid pain medications you are prescribed. Never take opioids in higher amounts or more often than prescribed. Do not combine opioids with alcohol or other drugs that cause drowsiness, such as benzodiazepines, also known as benzos, including diazepam and alprazolam, muscle relaxants or sleep aids. Never sell or share prescription opioids. This is illegal. Store opioids in a secure place and out of reach of others (including children, family, friends and visitors). The last page(s) of this document has been signed and retained as a CHART COPY Signatures Patient Education Materials Kidney Stone w/ Colic Medication Leaflets My discharge plan and instructions have been reviewed and explained to me and I,ANGEL SHANAE M understand my current condition and have read and understand these discharge instructions. I have received a written copy of the plan/instructions. If I have questions, I am aware that I should contact my doctor. Patient/Shackler Signature: Date/Time: Relationship to Patient: Witness Name/Signature: Date/Time: [facility] 12-26-2024 Note Exam Date Time Procedure Performing Provider Status 12/26/24 10:[address] Abdomen/Pelvis w/o Contrast RAUL ORTIZ MD; Auth (Verified) [id number] ORIGINAL EXAMINATION: CT OF THE ABDOMEN AND PELVIS WITHOUT CONTRAST 12/26/2024 10:35 pm TECHNIQUE: CT of the abdomen and pelvis was performed without the administration of intravenous contrast. Multiplanar reformatted images are provided for review. Automated exposure control, iterative reconstruction, and/or weight based adjustment of the mA/kV was utilized to reduce the radiation dose to as low as reasonably achievable. COMPARISON: None. HISTORY: ORDERING SYSTEM PROVIDED HISTORY: Reason for Exam: abdominal pain FINDINGS: Lower Chest: Visualized lower thorax demonstrates no consolidation or pleural effusion. Organs: The liver demonstrates no biliary duct dilatation or gross mass. The gallbladder demonstrates no calcified gallstones or gross wall thickening. The pancreas demonstrates no gross mass, gross inflammatory process, or ductal dilatation. Spleen is normal in size. There is stable small right adrenal hypodense nodule with density measurements 6 Hounsfield units. Left adrenal gland is normal in morphology. There is 3 mm calculus of right kidney without hydronephrosis. The left kidney demonstrates mild hydronephrosis without renal calculi. There is a 1.1 cm calculus of the proximal left ureter, at level of L4 of lumbar spine, as reference level. GI/Bowel: Stomach and duodenal sweep demonstrate no acute abnormality. Small bowel and colon are normal in caliber. There is mild sigmoid diverticulosis without diverticulitis. Appendix is normal in caliber without gross wall thickening or inflammatory change. Pelvis: Urinary bladder is within normal limits. Prior hysterectomy noted. Peritoneum/Retroperitoneum: Aorta is normal in caliber. There are a few calcified plaques of the aorta. Bones/Soft Tissues: There is a small fat-containing periumbilical hernia. Visualized osseous structures demonstrate mild degenerative changes. IMPRESSION: 1. 1.1 cm calculus of the proximal left ureter with mild left hydronephrosis. 2. 3 mm calculus of the right kidney without hydronephrosis. 3. Mild sigmoid diverticulosis without diverticulitis. 4. Small fat-containing periumbilical hernia. 5. Stable small right adrenal adenoma. Interpreted by: Raul Ortiz Preliminary Report By: Raul Ortiz Electronically signed By Raul Ortiz Dictated Date: 12/26/2024 10:52:17 PM Prelim Date: 12/26/2024 11:08:43 PM Sign Date: 12/26/2024 11:08:43 PM Ordering Provider: MALA FARFAN [facility]03-02-2023 Hospital Discharge instructions Patient Education 07/08/2022 05:32:32 Viral Syndrome (Adult) Viral Syndrome (Adult) A viral illness may cause a number of symptoms such as fever. Other symptoms depend on the part of the body that the virus affects. If it settles in your nose, throat, and lungs, it may cause cough, sore throat, congestion, runny nose, headache, earache and other ear symptoms, or shortness of breath. If it settles in your stomach and intestinal tract, it may cause nausea, vomiting, cramping, and diarrhea. Sometimes it causes generalized symptoms like aching all over, feeling tired, loss of energy, or loss of appetite. A viral illness usually lasts anywhere from several days to several weeks, but sometimes it lasts longer. In some cases, a more serious infection can look like a viral syndrome in the first few days of the illness. You may need another exam and additional tests to know the difference. Watch for thewarning signs listed below for when to seek medical advice. Home care Follow these guidelines for taking care of yourself at home: If symptoms are severe, rest at home for the first 2 to 3 days. Stay away from cigarette smoke - both your smoke and the smoke from others. You may use bgan-gtl-yezqsnz acetaminophen or ibuprofen for fever, muscle aching, and headache, unless another medicine was prescribed for this. If you have chronic liver or kidney disease or ever had a stomach ulcer or gastrointestinal bleeding, talk with your healthcare provider before using these medicines. No one who is younger than 18 and ill with a fever should take aspirin. It may cause severe disease or . Your appetite may be poor, so a light diet is fine. Avoid dehydration by drinking 8 to 12, 8-ounce glasses of fluids each day. This may include water; orange juice; lemonade; apple, grape, and cranberry juice; clear fruit drinks; electrolyte replacement and sports drinks; and decaffeinated teas andcoffee. If you have been diagnosed with a kidney disease, ask your healthcare provider how much andwhat types of fluids you should drink to prevent dehydration. If you have kidney disease, drinking too much fluid can cause it build up in the your body and be dangerous to your health. Typp-ckg-bkqkzal remedies won't shorten the length of the illness but may be helpful for symptoms such as cough, sore throat, nasal and sinus congestion, or diarrhea. Don't use decongestants if you have high blood pressure. Follow-up care Follow up with your healthcare provider if you do not improve over the next week. Call 911 Call 911 if any of the following occur: Convulsion Feeling weak, dizzy, or like you are going to faint Chest pain, or more than mild shortness of breath When to seek medical advice Call your healthcare provider right away if any of these occur: Cough with lots of colored sputum (mucus) or blood in your sputum Chest pain, shortness of breath, wheezing, or trouble breathing Severe headache; face, neck, or ear pain Severe, constant pain in the lower right side of your belly (abdominal) Continued vomiting (can t keep liquids down) Frequent diarrhea (more than 5 times a day); blood (red or black color) or mucus in diarrhea Feeling weak, dizzy, or like you are going to faint Extreme thirst Fever of 100.4 F (38 C) or higher, or as directed by your healthcare provider [id number] [employer]. [address] [place] [address]. All rights reserved. This information is not intended as a substitute for professional medical care. Always follow yourhealthcare professional's instructions. 07/08/2022 05:32:10 Vomiting (Adult) Vomiting (Adult) Vomiting is a common symptom that may be due to different causes. These include gastroenteritis (stomach flu), food poisoning and gastritis. There are other more serious causes of vomiting which may be hard to diagnose early in the illness. Therefore, it is important to watch for the warning signs listed below. The main danger from repeated vomiting is dehydration. This is due to excess loss of water and minerals from the body. When this occurs, your body fluids must be replaced. Home care If symptoms are severe, rest at home for the next 24 hours. Because your symptoms may be from an infection, wash your hands often and well. If soap and water are not available, use alcohol-based car distributor to keep from spreading the infection to others. Wash your hands for at least 20 seconds. Humming the happy birthday song twice while you wash is aneasy way to make sure you've washed for 20 seconds. Wash your hands after using the toilet, before and after preparing food, before eating food, after changing a diaper, cleaning a wound, caring for a sick person, and blowing your nose, coughing, or sneezing. You should also wash your hands after caring for someone who is sick, touching pet food, ortreats, and touching an animal, or animal waste. You may use acetaminophen or NSAID medicines like ibuprofen or naproxen to control fever, unless another medicine was prescribed. If you have chronic liver or kidney disease or ever had a stomach ulcer or gastrointestinal bleeding, talk with your doctor before using these medicines. Aspirin should never be used in anyone under 18 years of age who is ill with a fever. It may cause severe liver damage. Don't use NSAID medicines if you are already taking one for another condition (like arthritis) or are on aspirin (such as for heart disease, or after a stroke) Don't use tobacco and or drink alcohol, which may worsen your symptoms. If medicines for vomiting were prescribed, take as directed. Once vomiting stops, then follow these guidelines: During the first 12 to 24 hours follow the diet below: Fruit juices. Apple, grape juice, clear fruit drinks, and electrolyte replacement drinks. Beverages. Soft drinks without caffeine; mineral water (plain or flavored), decaffeinated tea and coffee. Soups. Clear broth and bouillon Desserts. Plain gelatin, ice pops, and fruit juice bars. As you feel better, you may add 6 to 8 ounces of yogurt per day. During the next 24 hours you may add the following to the above: Hot cereal, plain toast, bread, rolls, crackers Plain noodles, rice, mashed potatoes, chicken noodle or rice soup Unsweetened canned fruit such as applesauce, bananas (avoid pineapple and citrus) Limit caffeine and chocolate. No spices or seasonings except salt. During the next 24 hours: Gradually resume a normal diet, as you feel better and your symptoms lessen. Follow-up care Follow up with your healthcare provider, or as advised. When to seek medical advice Call your healthcare provider right away if any of these occur: Constant right-sided lower belly pain or increasing general belly pain Continued vomiting (unable to keep liquids down) for 24 hours Vomiting blood or coffee grounds Swollen belly Frequent diarrhea (more than 5 times a day); blood (red or black color) or mucus in diarrhea Reduced urine output or extreme thirst Weakness, dizziness or fainting Unusually drowsy or confused Fever of 100.4 F (38 C) oral or higher, or as directed Yellow color of the eyes or skin [id number] [employer]. [address] [place] [address]. All rights reserved. This information is not intended as a substitute for professional medical care. Always follow yourhealthcare professional's instructions. Follow Up Care 07/08/2022 03:39:06 With:NINI ROJAS DO Address: [address] [place] [phone] When:2-4 days With:NINI ROJAS DO Address: [address] [place] [address] [phone] When:2-4 days [facility] 03-02-2023 Note ORIGINAL EXAMINATION: ONE XRAY VIEW OF THE CHEST 07/08/2022 4:21 am COMPARISON: None. HISTORY: ORDERING SYSTEM PROVIDED HISTORY: Reason for Exam: SOB, Recent COVID FINDINGS: The cardiomediastinal silhouette is within normal limits. There are left basilar/retrocardiac streaky opacities. No vascular congestion, large pleural effusion, or pneumothorax. No acute osseous abnormality. IMPRESSION: Left basilar/retrocardiac streaky airspace disease. Follow-up to resolution is suggested. I have personally reviewed the images of this examination and agree with the resident's findings and interpretation. Interpreted by: Kentrell Putnam MD Preliminary Report By: Aure Starr Electronically signed By Kentrell Putnam MD Dictated Date: 07/08/2022 4:38:46 AM Prelim Date: 07/08/2022 4:40:40 AM Sign Date: 07/08/2022 6:22:53 AM Ordering Provider: [facility]03-02-2023 Note Discharge Instructions Thank you for allowing [facility] to assist you with your healthcare needs. The following is importantdischarge information regarding your hospital visit. Diagnosis from Today's Visit Shortness of breath Vomiting What to Do Next Instructions from Your Care Team No qualifying data available. Post Acute Orders No qualifying data available. You Need to Schedule the Following Appointments Follow Up with NINI ROJAS DO When Within 2-4 days Where: [address] [place] [phone] Follow Up with NINI ROJAS DO When Within 2-4 days Where: [address] [place] [address] [phone] Allergies Phenergan (Vomiting) Vicodin (Vomiting) antihistamines (Irregular heart beat) codeine (Rash, Breathing abnormal) penicillins (Rash, vomiting) Medications Please ask your primary doctor or pharmacist before taking any other medication not listed, including over the counter drugs, herbal medications, vitamins and or supplements as they may interact withyour home medications. What How Much When Why Instructions Last Dose New azithromycin (azithromycin 250 mg oral tablet) 1 tab(s) by mouth Every day Duration: 5 Days Take with a probiotic Printed Prescription New benzonatate (Tessalon Perles 100 mg oral capsule) 1 cap by mouth Three (3) times a day Duration: 7 Days Printed Prescription New ondansetron (ondansetron 4 mg oral tablet, disintegrating) 1 tab(s) by mouth Every 8 hours Duration: 3 Days Printed Prescription New prochlorperazine (prochlorperazine 25 mg rectal suppository) 1 suppository(ies) in the rectum Two (2) times a day as needed for as needed for nausea/vomiting Duration: 3 Days Printed Prescription Unchanged albuterol (ProAir HFA MDI (90 mcg/ inh) inhalation aerosol) 2 puff(s) by inhalation Every 6 hours as needed for as needed for wheezing Upper respiratory infection Okay to change to formulary preferred if needed Unchanged amLODIPine (amLODIPine 10 mg oral tablet) 1 tab(s) by mouth Once a day Hypertension Unchanged aspirin (aspirin 81 mg oral delayed release tablet) 1 tab(s) by mouth Every day Unchanged citalopram (citalopram 20 mg oral tablet) 1 tab(s) by mouth Once a day Situational anxiety Increased dose Unchanged fenofibrate (fenofibrate 160 mg oral tablet) 1 tab(s) by mouth Once a day Hyperlipidemia Unchanged hydroCHLOROthiazide (hydroCHLOROthiazide 25 mg oral tablet) 1 tab(s) by mouth Once a day Hypertension Please take this list to your next doctor s visit. Bring all medications you take, including over the counter medications, herbals and other supplements with you to your doctor s visit. Patients and families are reminded to discard old lists and to update any records with all medication providers or retail pharmacies. Education Materials Viral Syndrome (Adult) A viral illness may cause a number of symptoms such as fever. Other symptoms depend on the part of the body that the virus affects. If it settles in your nose, throat, and lungs, it may cause cough, sore throat, congestion, runny nose, headache, earache and other ear symptoms, or shortness of breath. If it settles in your stomach and intestinal tract, it may cause nausea, vomiting, cramping, and diarrhea. Sometimes it causes generalized symptoms like aching all over, feeling tired, loss of energy, or loss of appetite. A viral illness usually lasts anywhere from several days to several weeks, but sometimes it lasts longer. In some cases, a more serious infection can look like a viral syndrome in the first few days of the illness. You may need another exam and additional tests to know the difference. Watch for thewarning signs listed below for when to seek medical advice. Home care Follow these guidelines for taking care of yourself at home: If symptoms are severe, rest at home for the first 2 to 3 days. Stay away from cigarette smoke - both your smoke and the smoke from others. You may use [id number] acetaminophen or ibuprofen for fever, muscle aching, and headache, unless another medicine was prescribed for this. If you have chronic liver or kidney disease or ever had a stomach ulcer or gastrointestinal bleeding, talk with your healthcare provider before using these medicines. No one who is younger than 18 and ill with a fever should take aspirin. It may cause severe disease or . Your appetite may be poor, so a light diet is fine. Avoid dehydration by drinking 8 to 12, 8-ounce glasses of fluids each day. This may include water; orange juice; lemonade; apple, grape, and cranberry juice; clear fruit drinks; electrolyte replacement and sports drinks; and decaffeinated teas andcoffee. If you have been diagnosed with a kidney disease, ask your healthcare provider how much andwhat types of fluids you should drink to prevent dehydration. If you have kidney disease, drinking too much fluid can cause it build up in the your body and be dangerous to your health. Dtks-owh-merdtfl remedies won't shorten the length of the illness but may be helpful for symptoms such as cough, sore throat, nasal and sinus congestion, or diarrhea. Don't use decongestants if you have high blood pressure. Follow-up care Follow up with your healthcare provider if you do not improve over the next week. Call 911 Call 911 if any of the following occur: Convulsion Feeling weak, dizzy, or like you are going to faint Chest pain, or more than mild shortness of breath When to seek medical advice Call your healthcare provider right away if any of these occur: Cough with lots of colored sputum (mucus) or blood in your sputum Chest pain, shortness of breath, wheezing, or trouble breathing Severe headache; face, neck, or ear pain Severe, constant pain in the lower right side of your belly (abdominal) Continued vomiting (can t keep liquids down) Frequent diarrhea (more than 5 times a day); blood (red or black color) or mucus in diarrhea Feeling weak, dizzy, or like you are going to faint Extreme thirst Fever of 100.4 F (38 C) or higher, or as directed by your healthcare provider [id number] [employer]. [address] [place] [address]. All rights reserved. This information is not intended as a substitute for professional medical care. Always follow yourhealthcare professional's instructions. Vomiting (Adult) Vomiting is a common symptom that may be due to different causes. These include gastroenteritis (stomach flu), food poisoning and gastritis. There are other more serious causes of vomiting which may be hard to diagnose early in the illness. Therefore, it is important to watch for the warning signs listed below. The main danger from repeated vomiting is dehydration. This is due to excess loss of water and minerals from the body. When this occurs, your body fluids must be replaced. Home care If symptoms are severe, rest at home for the next 24 hours. Because your symptoms may be from an infection, wash your hands often and well. If soap and water are not available, use alcohol-based car distributor to keep from spreading the infection to others. Wash your hands for at least 20 seconds. Humming the happy birthday song twice while you wash is aneasy way to make sure you've washed for 20 seconds. Wash your hands after using the toilet, before and after preparing food, before eating food, after changing a diaper, cleaning a wound, caring for a sick person, and blowing your nose, coughing, or sneezing. You should also wash your hands after caring for someone who is sick, touching pet food, ortreats, and touching an animal, or animal waste. You may use acetaminophen or NSAID medicines like ibuprofen or naproxen to control fever, unless another medicine was prescribed. If you have chronic liver or kidney disease or ever had a stomach ulcer or gastrointestinal bleeding, talk with your doctor before using these medicines. Aspirin should never be used in anyone under 18 years of age who is ill with a fever. It may cause severe liver damage. Don't use NSAID medicines if you are already taking one for another condition (like arthritis) or are on aspirin (such as for heart disease, or after a stroke) Don't use tobacco and or drink alcohol, which may worsen your symptoms. If medicines for vomiting were prescribed, take as directed. Once vomiting stops, then follow these guidelines: During the first 12 to 24 hours follow the diet below: Fruit juices. Apple, grape juice, clear fruit drinks, and electrolyte replacement drinks. Beverages. Soft drinks without caffeine; mineral water (plain or flavored), decaffeinated tea and coffee. Soups. Clear broth and bouillon Desserts. Plain gelatin, ice pops, and fruit juice bars. As you feel better, you may add 6 to 8 ounces of yogurt per day. During the next 24 hours you may add the following to the above: Hot cereal, plain toast, bread, rolls, crackers Plain noodles, rice, mashed potatoes, chicken noodle or rice soup Unsweetened canned fruit such as applesauce, bananas (avoid pineapple and citrus) Limit caffeine and chocolate. No spices or seasonings except salt. During the next 24 hours: Gradually resume a normal diet, as you feel better and your symptoms lessen. Follow-up care Follow up with your healthcare provider, or as advised. When to seek medical advice Call your healthcare provider right away if any of these occur: Constant right-sided lower belly pain or increasing general belly pain Continued vomiting (unable to keep liquids down) for 24 hours Vomiting blood or coffee grounds Swollen belly Frequent diarrhea (more than 5 times a day); blood (red or black color) or mucus in diarrhea Reduced urine output or extreme thirst Weakness, dizziness or fainting Unusually drowsy or confused Fever of 100.4 F (38 C) oral or higher, or as directed Yellow color of the eyes or skin [id number] [employer]. [address] [place], [place] [address]. All rights reserved. This information is not intended as a substitute for professional medical care. Always follow yourhealthcare professional's instructions. Additional Information VACCINATE! IT SAVES LIVES! Members of the community who have not yet received the COVID-19 vaccine and would like to receive it can visit one of [facility] vaccine clinics. There are many vaccine clinic locations within the [facility]. For locations and available times, please visit www.[email or web address].[email or web address]/. It is important to note that some COVID mobile vaccine clinics are held outdoors and may be canceled in rainy or stormy conditions. To learn more about pediatric vaccinations (ages 5-11), we invite you to visit the [facility] webpage. [email or web address]/[email or web address] [email or web address] learn more about the COVID-19 vaccine, we invite you to visit the CDC website for a list of frequently asked questions. https://www.cdc.gov/coronavirus/2019-ncov/vaccines/faq.html [facility] Patient Portal Access Instructions: Stay connected with your healthcare team and access your personal medical information anytime with the [employer] Patient Portal. If you would like a full copy of your medical records please contact the [facility] Medical Records Department Tuesday through Tuesday between 8a.m. and 4:30p.m. Please follow the directions below to access the portal: 1.Access the email account you provided upon registration to the [facility].2.Look for an invitation email from [facility].3.Open the email and access the invitation link: Accept Invitation to [facility].Fill in the required sands to create your account. Sign into www.[employer] with your username and password that you created in the above steps to stay up to date. You can then view a summary of results, a summary of your visits, and the ability to download your summaries to your computer or send the information securely to a physician. Remember that your healthcare information is confidential, so carefully consider who you will allow to register on the [employer] Patient Portal for access to your information. You can also access the [employer] Patient Portal on the [employer]. Simply click on Health Records under [facility] and then click on the [employer] logo. HOW TO SAFELY DISPOSE OF PRESCRIPTION MEDICATIONS Please use one of the following methods to safely dispose of your unused medications. 1.Use a drug disposal kit: the drug disposal pouch allows you to safely discard your old and unuseddrugs. Ask your nurse to give you one when you are discharged.2.Visit a local take-back location: Many local pharmacies and police departments have programs that collect old and unwanted prescriptiondrugs. Call your local pharmacy or go to http://[employer]/7W5Dc5p to find one close to you.3.Make use of household items: Use cat litter or old coffee grounds to dispose medications if other options arenot available. Mix your drugs with these household products, seal them in an airtight container andthrow it into the garbage. Call [facility]: [phone] to be sure your drugs can be disposed of in this way. Some medicines may require a different approach.4.Never flush your medications down the toilet. IF YOU HAVE BEEN PRESCRIBED AN OPIOIDS FOR PAIN If you have been prescribed an opioid (such as hydrocodone, oxycodone or morphine), it is critical to understand the possible side effects and risks of opioid pain medications. Even when taken as directed, opioids can have several side effects including: Tolerance, meaning you might need to take more of a medication for the same pain relief. Nausea, vomiting and/or constipation. Sleepiness, dizziness, dry mouth, confusion, depression or itching. Physical dependence, meaning you have withdrawal symptoms when a medication is stopped ? this can develop within a few days. KNOW YOUR RESPONSIBILITIES It is important to know exactly how much and how often to take the opioid pain medications you are prescribed. Never take opioids in higher amounts or more often than prescribed. Do not combine opioids with alcohol or other drugs that cause drowsiness, such as benzodiazepines, also known as benzos,including diazepam and alprazolam, muscle relaxants or sleep aids. Never sell or share prescriptionopioids. This is illegal. Store opioids in a secure place and out of reach of others (including children, family, friends and visitors). The last page(s) of this document has been signed and retained as a CHART COPY Signatures Patient Education Materials Viral Syndrome (Adult) Vomiting (Adult) Medication Leaflets My discharge plan and instructions have been reviewed and explained to me and I,SHANAE ORTIZ understand my current condition and have read and understand these discharge instructions. I have received a written copy of the plan/instructions. If I have questions, I am aware that I should contactmy doctor. Patient/Shackler Signature: Date/Time: Relationship to Patient: Witness Name/Signature: Date/Time: [facility]03-02-2023 Note ORIGINAL EXAMINATION: ONE XRAY VIEW OF THE CHEST 07/08/2022 4:21 am COMPARISON: None. HISTORY: ORDERING SYSTEM PROVIDED HISTORY: Reason for Exam: SOB, Recent COVID FINDINGS: The cardiomediastinal silhouette is within normal limits. There are left basilar/retrocardiac streaky opacities. No vascular congestion, large pleural effusion, or pneumothorax. No acute osseous abnormality. IMPRESSION: Left basilar/retrocardiac streaky airspace disease. Follow-up to resolution is suggested. I have personally reviewed the images of this examination and agree with the resident's findings and interpretation. Interpreted by: Kentrell Putnam MD Preliminary Report By: Aure Starr Electronically signed By Kentrell Putnam MD Dictated Date: 07/08/2022 4:38:46 AM Prelim Date: 07/08/2022 4:40:40 AM Sign Date: 07/08/2022 6:22:53 AM [facility] Appointment Date:05/19/2021 11:30:00 AM Scheduled Provider:NINI ORJAS DO Location:[facility] Appointment Type:[facility] Evaluation + Plan note Future Appointments Appointment Date:10/02/2021 11:30:00 AM Scheduled Provider:NINI ROJAS DO Location:[facility] Appointment Type:PC OV Appointment Date:11/25/2021 11:30:00 AM Scheduled Provider:NINI ROJAS DO Location:[facility] Appointment Type:PC Wellness Annual Future Scheduled Tests Radiology* MA Mammo Screening Bilateral w/ Ben 08/21/21 [facility] Evaluation + Plan note Future Appointments Appointment Date:10/02/2021 11:30:00 AM Scheduled Provider:NINI ROJAS DO Location:[facility] Appointment Type:PC OV Appointment Date:11/25/2021 11:30:00 AM Scheduled Provider:NINI ROJAS DO Location:[facility] Appointment Type:PC Wellness Annual [facility] Evaluation + Plan note Future Appointments Appointment Date:07/13/2022 08:30:00 AM Scheduled Provider:NINI ROJAS DO Location:[facility] Appointment Type:PC OV ED Follow Up Appointment Date:08/12/2022 02:00:00 PM Scheduled Provider:NINI ROJAS DO Location:[facility] Appointment Type:PC OV Future Scheduled Tests Laboratory* Thyroid Stimulating Hormone 08/05/22 * Lipid Profile 08/05/22 * Vitamin D Level 08/05/22 * Complete Metabolic Panel 08/05/22 [facility] Evaluation + Plan note Future Appointments Appointment Date:08/12/2022 02:00:00 PM Scheduled Provider:NINI ROJAS DO Location:[facility] Appointment Type:PC OV Future Scheduled Tests Laboratory* Thyroid Stimulating Hormone 08/05/22 * Lipid Profile 08/05/22 * Vitamin D Level 08/05/22 * Complete Metabolic Panel 08/05/22 [facility] Evaluation + Plan note Future Appointments Appointment Date:08/12/2022 02:00:00 PM Scheduled Provider:NINI ROJAS DO Location:[facility] Appointment Type: OV [facility] Evaluation + Plan note Future Appointments Appointment Date:10/28/2022 09:00:00 AM Scheduled Provider:NINI ROJAS DO Location:[facility] Appointment Type: OV Future Scheduled Tests Laboratory* Thyroid Stimulating Hormone 10/12/22 * Free T4 10/12/22 * Free T3 10/12/22 * Complete Metabolic Panel 10/12/22 [facility] Evaluation + Plan note Future Appointments Appointment Date:10/28/2022 09:00:00 AM Scheduled Provider:NINI ROJAS DO Location:[facility] Appointment Type:[facility] Evaluation + Plan note Future Appointments Appointment Date:01/20/2023 09:00:00 AM Scheduled Provider:NINI ROJAS DO Location:[facility] Appointment Type: Wellness Annual Future Scheduled Tests Laboratory* Magnesium Level 10/28/22 * Thyroid Stimulating Hormone 10/28/22 * Vitamin B12 Level 10/28/22 * Lipid Profile 10/28/22 * Vitamin D Level 10/28/22 * Complete Metabolic Panel 10/28/22 Radiology* MA Mammo Screening Bilateral w/ Ben 10/28/22 [facility] Evaluation + Plan note Future Appointments Appointment Date:01/20/2023 09:00:00 AM Scheduled Provider:NINI ROJAS DO Location:[facility] Appointment Type: Wellness Annual Future Scheduled Tests Laboratory* Magnesium Level 10/28/22 * Thyroid Stimulating Hormone 10/28/22 * Vitamin B12 Level 10/28/22 * Lipid Profile 10/28/22 * Vitamin D Level 10/28/22 * Complete Metabolic Panel 10/28/22 [facility] Evaluation + Plan note Future Appointments Appointment Date:03/24/2023 02:30:00 PM Scheduled Provider:NINI ROJAS DO Location:[facility] Appointment Type:PC Wellness Annual [facility] Evaluation + Plan note Future Appointments Appointment Date:05/10/2023 02:30:00 PM Scheduled Provider:NINI ROJAS DO Location:[facility] Appointment Type:PC OV Future Scheduled Tests Laboratory* Thyroid Stimulating Hormone 09/22/23 * Vitamin B12 Level 09/22/23 * Lipid Profile 09/22/23 * Vitamin D Level 09/22/23 * Complete Metabolic Panel 09/22/23 [facility] Evaluation + Plan note Future Appointments Appointment Date:11/22/2023 10:30:00 AM Scheduled Provider:NINI ROJAS DO Location:[facility] Appointment Type: OV Future Scheduled Tests Laboratory* Thyroid Stimulating Hormone 09/22/23 * Vitamin B12 Level 09/22/23 * Lipid Profile 09/22/23 * Vitamin D Level 09/22/23 * Complete Metabolic Panel 09/22/23 [facility] Evaluation + Plan note Future Appointments Appointment Date:03/20/2024 01:00:00 PM Scheduled Provider:NINI ROJAS DO Location:[facility] Appointment Type: Wellness Annual Future Scheduled Tests Laboratory* Thyroid Stimulating Hormone 04/01/24 * Thyroid Stimulating Hormone 09/22/23 * Vitamin B12 Level 09/22/23 * Lipid Profile 04/01/24 * Lipid Profile 09/22/23 * Vitamin D Level 04/01/24 * Vitamin D Level 09/22/23 * Complete Metabolic Panel 04/01/24 * Complete Metabolic Panel 09/22/23 [facility] Evaluation + Plan note Future Appointments Appointment Date:03/20/2024 01:00:00 PM Scheduled Provider:NINI ROJAS DO Location:[facility] Appointment Type:PC Wellness Annual Future Scheduled Tests Laboratory* Thyroid Stimulating Hormone 09/22/23 * Vitamin B12 Level 09/22/23 * Lipid Profile 09/22/23 * Vitamin D Level 09/22/23 * Complete Metabolic Panel 09/22/23 [facility] Evaluation + Plan note Future Appointments Appointment Date:04/16/2024 04:20:00 PM Scheduled Provider: Location:[facility] Appointment Type:CT Thorax Screening w/o Contrast Appointment Date:09/06/2024 01:00:00 PM Scheduled Provider:NINI ROJAS DO Location:[facility] Appointment Type:PC OV Future Scheduled Tests Laboratory* Thyroid Stimulating Hormone 09/22/23 * Vitamin B12 Level 09/22/23 * Lipid Profile 09/22/23 * Vitamin D Level 09/22/23 * Complete Metabolic Panel 09/22/23 Radiology* CT Low Dose Lung Cancer Screening (LDCT) 04/16/24 [facility] Evaluation + Plan note Future Appointments Appointment Date:09/06/2024 01:00:00 PM Scheduled Provider:NINI ROJAS DO Location:[facility] Appointment Type:PC OV Future Scheduled Tests Laboratory* Thyroid Stimulating Hormone 09/22/23 * Vitamin B12 Level 09/22/23 * Lipid Profile 09/22/23 * Vitamin D Level 09/22/23 * Complete Metabolic Panel 09/22/23 [facility] Evaluation + Plan note Future Appointments Appointment Date:03/14/2025 01:00:00 PM Scheduled Provider:NINI ROJAS DO Location:[facility] Appointment Type:PC OV Future Scheduled Tests Laboratory* Thyroid Stimulating Hormone 09/06/24 * Thyroid Stimulating Hormone 09/22/23 * Vitamin B12 Level 09/22/23 * Complete Blood Count 09/06/24 * Lipid Profile 09/06/24 * Lipid Profile 09/22/23 * Vitamin D Level 09/06/24 * Vitamin D Level 09/22/23 * Complete Metabolic Panel 09/06/24 * Complete Metabolic Panel 09/22/23 [facility] Evaluation + Plan note Future Appointments Appointment Date:03/14/2025 01:00:00 PM Scheduled Provider:NINI ROJAS DO Location:[facility] Appointment Type:PC OV Future Scheduled Tests Laboratory* Thyroid Stimulating Hormone 09/06/24 * Complete Blood Count 09/06/24 * Lipid Profile 09/06/24 * Vitamin D Level 09/06/24 * Complete Metabolic Panel 09/06/24 [facility] Hospital course Narrative No data available for this section [facility] Hospital Discharge instructions No data available for this section [facility] Progress note No data available for this section [facility] Summary note* ARY Wadsworth Danya: PERFORM Event Display: Patient Summary Documents Authored Date: [facility] Summary Purpose Family History No Family History Records Found Advance Directives No Advanced Directives Records FoundNo Advanced Directives Records FoundNo Advanced Directives Records Found Additional Source Comments Care Team (unrecognized sect ion and content) Personnel Name: NINI ROJAS DO Address: [address] [place] [address] Personnel Name: NINI ROJAS DO Address: [address] [place] [address] Care Team Personnel Name: NINI ROJAS DO Position: P4 Physician - Primary Care Member Role: Primary Care Physician Address: Address: [address] [place] [address] Care Team Related Persons Name: HARJEET ORTIZ Address: Home [address] [place], [place] [phone] [place] Care Team Personnel Name: NINI ROJAS DO Position: P4 Physician - Primary Care Member Role: Primary Care Physician Address: Address: [address] [place] [address] Care Team Related Persons Name: HARJEET ORTIZ Address: Home [address] [place], [place] [id number] [place] Care Team Personnel Name: NINI ROJAS DO Position: P4 Physician - Primary Care Member Role: Primary Care Physician Address: Address: [address] [place] [phone]- Care Team Related Persons Name: HARJEET ORTIZ Address: Home [address] [place], [place] [phone] [place] Care Team Personnel Name: INNI ROJAS DO Position: P4 Physician - Primary Care Member Role: Primary Care Physician Address: Address: [address] [place] [address]- Care Team Related Persons Name: HARJEET ORTIZ Address: Home [address] [place], [place] [phone] [place] Care Team Personnel Name: NINI ROJAS DO Position: P4 Physician - Primary Care Member Role: Primary Care Physician Address: Address: [address] [place] [address]- Name: SUSANNE REYES Member Role: [employer] Dispatcher Care Team Related Persons Name: HARJEET ORTIZ Address: Home [address] [place], [place] [id number] [place] Care Team Personnel Name: NINI ROJAS DO Position: P4 Physician - Primary Care Member Role: Primary Care Physician Address: Address: [address] [place] [address]- Name: SUSANNE REYES Member Role: [employer] Dispatcher Care Team Related Persons Name: HARJEET ORTIZ Address: Home [address] [place], [place] [id number] [place] Care Team Personnel Name: NINI ROJAS DO Position: P4 Physician - Primary Care Member Role: Primary Care Physician Address: Address: [address] [place] [address]- Name: SUSANNE REYES Member Role: [employer] Dispatcher Care Team Related Persons Name: HARJEET ORTIZ Address: Home [address] [place], [place] [phone] [place] Care Team Personnel Name: NINI ROJAS DO Position: P4 Physician - Primary Care Member Role: Primary Care Physician Address: Address: [address] [place] [address]- Name: SUSANNE REYES Member Role: [employer] Dispatcher Care Team Related Persons Name: HARJEET ORTIZ B Address: Home [address] [place], [place] [phone] [place] Care Team Personnel Name: NINI ROJAS DO Position: P4 Physician - Primary Care Member Role: Primary Care Physician Address: Address: [address] [place] [address] Name: SUSANNE REYES Member Role: [employer] Dispatcher Care Team Related Persons Name: HARJEET ORTIZ B Address: Home [address] [place], [place] [phone] [place] Care Team Personnel Name: NINI ROJAS DO Position: P4 Physician - Primary Care Member Role: Primary Care Physician Address: Address: [address] [place] [id number] [place] [address] Name: SUSANNE REYES Member Role: [employer] Dispatcher Care Team Related Persons Name: HARJEET ORTIZ B Address: Home [address] [place], [place] [phone] [place] Care Team Personnel Name: NINI ROJAS DO Position: P4 Physician - Primary Care Member Role: Primary Care Physician Address: Address: [address] [place] [id number] [place] [address] Name: SUSANNE REYES Member Role: [employer] Dispatcher Care Team Related Persons Name: HARJEET ORTIZ B Address: Home [address] [place], [place] [phone] [place] Care Team Personnel Name: NINI ROJAS DO Position: P4 Physician - Primary Care Member Role: Primary Care Physician Address: Address: [address] [place] [phone]- Name: SUSANNE REYES Member Role: [employer] Dispatcher Care Team Related Persons Name: HARJEET ORTIZ B Address: Home [address] [place], [place] [phone] [place] Care Team Personnel Name: NINI ROJAS DO Position: P4 Physician - Primary Care Member Role: Primary Care Physician Address: Address: [address] [place] [address] Name: SUSANNE REYES Member Role: [employer] Dispatcher Care Team Related Persons Name: HARJEET ORTIZ Address: Home [address] [place], [place] [phone] [place] Care Team Personnel Name: NINI ROJAS DO Position: P4 Physician - Primary Care Member Role: Primary Care Physician Address: Address: [address] [place] [address] Name: SUSANNE REYES Member Role: [employer] Dispatcher Care Team Related Persons Name: HARJEET ORTIZ Address: Home [address] [place], [place] [phone] [place] Care Team Personnel Name: NINI ROJAS DO Position: P4 Physician - Primary Care Member Role: Primary Care Physician Address: [address] [place] [address] Telecom: Name: SUSANNE REYES Member Role: [employer] Dispatcher Telecom: Care Team Related Persons Name: HARJEET ORTIZ Care Team Personnel Name: NINI ROJAS DO Position: P4 Physician - Primary Care Member Role: Primary Care Physician Address: [address] [place] [address] Telecom: Name: SUSANNE REYES Member Role: [employer] Dispatcher Telecom: Care Team Related Persons Name: HARJEET ORTIZ Care Team Personnel Name: NINI ROJAS DO Position: P4 Physician - Primary Care Member Role: Primary Care Physician Address: [address] [place] [address] Telecom: Name: SUSANNE REYES Member Role: [employer] Dispatcher Telecom: Care Team Related Persons Name: HARJEET ORTIZ Care Team (unrecognized sect ion and content) Care Team Personnel Name: NINI ROJAS DO Position: P4 Physician - Primary Care Member Role: Primary Care Physician Address: Address: [address] [place] [address] Name: Gabriele Amaro RN Position: AO RN Member Role: RN Name: MALA FARFAN DO Position: ED Physician Member Role: ED Physician Address: Address: [facility] [address] [place] [address]- Care Team Related Persons Name: HARJEET ORTIZ Address: Home [address] [place], [place] [phone] [place] INFORMATION SOURCE (unrecogn ized section and content) DATE CREATED AUTHOR 12/07/2023 [facility] [place] DATE CREATED AUTHOR AUTHOR'S ORGANIZ ATION 01/14/2025 [facility] DATE CREATED AUTHOR AUTHOR'S ORGANIZ ATION 01/31/2025 [facility] FOR RECORDS PERTAINING TO PATIENTS WHO ARE OR HAVE BEEN ENROLLED IN A CHEMICAL DEPENDENCY/SUBSTANCEABUSE PROGRAM, SOME INFORMATION MAY BE OMITTED. This clinical summary was aggregated from multiple sources. Caution should be exercised in using it in the provision of clinical care. This summary normalizes information from multiple sources, and as a consequence, information in this document may materially change the coding, format and clinical context of patient data. In addition, data may be omitted in some cases. CLINICAL DECISIONS SHOULD BE BASED ON THE PRIMARY CLINICAL RECORDS. [facility]. provides no warranty or guarantee of the accuracy or completeness of information in this document.
== END | disposition home or self-care (01) ==
LOC: CT 18:35
PROVIDERS: PCP Family Medicine; Visit Provider Urology
DX: N20.1 Calculus of ureter (principal); N13.30 Unspecified hydronephrosis; R10.9 Unspecified abdominal pain
CPT/HCPCS: 74176